=== PATIENT | female | born 1960 | race Caucasian/White ===

== ENCOUNTER 2021-07-10 11:24 | Inpatient (IN) ==
[2021-07-10] MEDS ORDERED: 0.9 % Sodium Chloride 500 ML IVC ONE ×2 (11:44→13:26)
[2021-07-10 11:56] LABS: Hemoglobin 8.5 g/dL (11.5-15.4)
[2021-07-10 11:58] LABS: Hematocrit 30.5 % (35.3-44.9); Immature Platelets 9.2 % (1.1-6.1); Mean Corpuscular HGB Conc 27.9 g/dL (31.6-35.5); Mean Corpuscular Hemoglobin 27.9 pg (28.0-33.3); Monocytes # 0.4 K/mcL (0.0-1.3); Neutrophils # 3.4 K/mcL (1.6-8.9); Nucleated Red Blood Cells 1.1 /100 WBC (0); Red Blood Count 3.05 M/mcL (3.82-4.97); Red Cell Distribution Width 17.2 % (11.5-14.5); White Blood Count 4.5 K/mcL (4.3-11.1)
[2021-07-10 12:06] LABS: Prothrombin Time 10.7 Seconds (9.4-12.1)
[2021-07-10 12:07] LABS: Platelet Count 92 K/mcL (140-400)
[2021-07-10 12:08] LABS: Activated Partial Thrombo Time 30.5 Seconds (26.0-36.0)
[2021-07-10 12:19] LABS: Lymphocytes # 0.7 K/mcL (0.6-4.6)
[2021-07-10 12:20] LABS: Anisocytosis 1+ (Not Present); Hypochromasia Present (Not Present); Platelet Estimate Decreased (Normal); Poikilocytosis 1+ (Not Present)
[2021-07-10 12:36] LABS: Troponin I 0.04 ng/mL (< 0.04)
[2021-07-10 12:37] LABS: Alanine Aminotransferase 6 Units/L (7-52); Albumin 4.2 g/dL (3.5-5.7); Albumin/Globulin Ratio 1.8 (1.1-2.2); Alkaline Phosphatase 71 Units/L (34-104); Aspartate Amino Transferase 7 Units/L (13-39); BUN/Creatinine Ratio 11 (6-26); Bilirubin,Indirect 0.3 mg/dL (0.0-1.0); Bilirubin,Total 0.3 mg/dL (0.3-1.0); Blood Urea Nitrogen 116 mg/dL (8-23); Calcium 9.5 mg/dL (8.6-10.3); Carbon Dioxide 18 mEq/L (23-29); Chloride 115 mEq/L (98-107); Ethanol < 10 mg/dL (Less than 10); Globulin 2.3 g/dL (2.4-3.5); Glucose 144 mg/dL (70-105); Osmolality,Calculated 335 (280-300); Potassium 6.4 mEq/L (3.5-5.1); Sodium 143 mEq/L (136-145); Total Protein 6.5 g/dL (6.4-8.9); eGFR For African Americans 4 (> 60); eGFR For Non-African Americans 4 (> 60)
[2021-07-10] MEDS ORDERED: Calcium Gluconate 1,000 MG/10 ML VIAL IVP STA (13:42)
[2021-07-10] MEDS ORDERED: *HR* Dextrose 50 % in Water (Syg) 50 ML SYRINGE IVP ONE (13:43)
[2021-07-10] MEDS ORDERED: Insulin Human Regular 10 UNIT in 0.9 % Sodium Chloride 10 ML IV ONE (13:43)
[2021-07-10] MEDS ORDERED: Calcium Gluconate 1gm/50mL 1 GM/50 ML BAG IVPB ONE (14:30)
[2021-07-10] MEDS ORDERED: *HR* Heparin 5,000 UNIT/ML VIAL ONE ×2 (15:20→15:22)
[2021-07-10] MEDS ORDERED: 0.9 % Sodium Chloride 1,000 ML PRIME ONE ×2 (15:48)
[2021-07-10] MEDS ORDERED: *HR* Alteplase (Cathflo) 2 MG VIAL IVP PRN (15:48)
[2021-07-10] MEDS ORDERED: 0.9 % Sodium Chloride 1,000 ML PRIME SCH (16:00)
[2021-07-10] MEDS ORDERED: Naloxone 0.4 MG/ML INJ IVP PRN (16:20)
[2021-07-10] MEDS ORDERED: Ondansetron 4 MG/2 ML VIAL IVP PRN (16:20)
[2021-07-10 16:26] LABS: Amphetamine Screen,Urine Negative ng/mL (Cutoff=1000); Barbiturate Screen,Urine Negative ng/mL (Cutoff=200); Benzodiazepines Screen,Urine Negative ng/mL (Cutoff=200); Cannabinoid Screen,Urine Negative ng/mL (Cutoff = 50); Cocaine Screen,Urine Negative ng/mL (Cutoff= 300); Opiate Screen,Urine Negative ng/mL (Cutoff=300); Phencyclidine Screen,Urine Negative ng/mL (Cutoff=25)
[2021-07-10 16:44] LABS: Bilirubin,Urine Negative (Negative); Blood,Urine Large (Negative); Clarity,Urine Turbid (Clear); Color,Urine Dark-Red (Yellow); Glucose,Urine (UA) Normal (Normal); Ketones,Urine Negative (Negative); Leukocyte Esterase,Urine Small (Negative); Nitrite,Urine Negative (Negative); Protein,Urine >=600 mg/dL (Neg-Trace); Specific Gravity,Urine 1.021 (1.010-1.025); Urobilinogen,Urine Normal (Normal)
[2021-07-10 16:54] LABS: Influenza A PCR Negative (Negative); Influenza B PCR Negative (Negative); Resp. Syncytial Virus PCR Negative (Negative)
[2021-07-10 16:59] LABS: SARS-CoV-2 by PCR (In House) Negative (Negative)
[2021-07-10] MEDS ORDERED: *HR* Dextrose 50 % in Water (Syg) 50 ML SYRINGE ONE (20:35)
[2021-07-10] MEDS ORDERED: *HR* Dextrose 50 % in Water (Syg) 50 ML SYRINGE IVP PRN (21:05)
[2021-07-10] MEDS ORDERED: Dextrose Gel 15 GM/37.5 ML TUBE PO PRN ×2 (21:05)
[2021-07-10] MEDS ORDERED: D5% in Water 1,000 ML IVC PRN (21:05)
[2021-07-10 21:55] LABS: Calcium 9.2 mg/dL (8.6-10.3); Potassium 5.6 mEq/L (3.5-5.1)
[2021-07-10] MEDS: SODIUM ZIRCONIUM CYCLOSILICATE 5 GM POWD.PACK PO SCH (22:14)
[2021-07-10] MEDS ORDERED: Norepinephrine 4 MG/254 ML IV.SOLN IVC SCH (22:15)
[2021-07-10] MEDS: Norepinephrine 4 MG/254 ML IV.SOLN IVC SCH (22:37)
[2021-07-10] MEDS: PrismaSATE BGK 4/2.5 5,000 ML CRRT SCH ×2 (22:38→22:39)
[2021-07-11] MEDS: PrismaSATE BGK 4/2.5 5,000 ML CRRT SCH ×10 (03:00→23:43)
[2021-07-11 03:27] LABS: Basophils % 0.2 %
[2021-07-11 03:29] LABS: VBG Ionized Calcium 1.16 mmol/L (1.15-1.35)
[2021-07-11 03:29] LABS: Eosinophils # 0.1 K/mcL (0.0-0.6); Eosinophils % 2.4 %; Hematocrit 25.6 % (35.3-44.9); Hemoglobin 7.4 g/dL (11.5-15.4); Immature Granulocytes % 1.2 % (0-4); Immature Platelets 6.4 % (1.1-6.1); Lymphocytes # 0.6 K/mcL (0.6-4.6); Lymphocytes % 13.4 %; Mean Corpuscular HGB Conc 28.9 g/dL (31.6-35.5); Mean Corpuscular Hemoglobin 27.6 pg (28.0-33.3); Mean Corpuscular Volume 95.5 fL (83.0-100.0); Mean Platelet Volume 12.1 fL (9.4-12.4); Monocytes # 0.3 K/mcL (0.0-1.3); Monocytes % 8.1 %; Neutrophils # 3.1 K/mcL (1.6-8.9); Platelet Count 91 K/mcL (140-400); Red Blood Count 2.68 M/mcL (3.82-4.97); Red Cell Distribution Width 17.1 % (11.5-14.5); Segmented Neutrophils % 74.7 %; White Blood Count 4.2 K/mcL (4.3-11.1)
[2021-07-11 03:45] LABS: Magnesium 2.6 mg/dL (1.6-2.6); Phosphorous 5.3 mg/dL (2.7-4.5)
[2021-07-11 03:46] LABS: Calcium 8.6 mg/dL (8.6-10.3); Potassium 5.3 mEq/L (3.5-5.1)
[2021-07-11 03:56] LABS: Platelet Estimate Decreased (Normal)
[2021-07-11 03:57] LABS: Anisocytosis 1+ (Not Present)
[2021-07-11] MEDS: SODIUM ZIRCONIUM CYCLOSILICATE 5 GM POWD.PACK PO SCH (07:44)
[2021-07-11] MEDS: Pantoprazole 40 MG VIAL IVP SCH (08:15)
[2021-07-11] MEDS: cefTRIAXone 1,000 MG in Water for inj. (sterile) 10 ML IVP SCH (09:37)
[2021-07-11 13:48] LABS: Complement C3 87 mg/dL (87-200)
[2021-07-11 16:16] LABS: Sodium, Urine 49.2 mEq/L
[2021-07-11 16:34] LABS: Protein/Creatinine Ratio,Urine 2.67 mg/mg (0.00-0.20)
[2021-07-11 18:32] LABS: Eosinophils # 0.1 K/mcL (0.0-0.6); Eosinophils % 1.1 %; Hematocrit 23.5 % (35.3-44.9); Immature Granulocytes % 0.9 % (0-4); Immature Platelets 6.5 % (1.1-6.1); Lymphocytes # 0.6 K/mcL (0.6-4.6); Lymphocytes % 9.7 %; Mean Corpuscular HGB Conc 29.8 g/dL (31.6-35.5); Mean Corpuscular Hemoglobin 27.7 pg (28.0-33.3); Mean Corpuscular Volume 92.9 fL (83.0-100.0); Mean Platelet Volume 12.5 fL (9.4-12.4); Monocytes # 0.4 K/mcL (0.0-1.3); Monocytes % 6.9 %; Neutrophils # 4.6 K/mcL (1.6-8.9); Nucleated Red Blood Cells 0.4 /100 WBC (0); Platelet Count 64 K/mcL (140-400); Red Blood Count 2.53 M/mcL (3.82-4.97); Red Cell Distribution Width 17.2 % (11.5-14.5); Segmented Neutrophils % 81.4 %; White Blood Count 5.7 K/mcL (4.3-11.1)
[2021-07-11] MEDS ORDERED: Ipratropium/Albuterol Neb 3 ML IH PRN (20:36)
[2021-07-11] MEDS: Norepinephrine 4 MG/254 ML IV.SOLN IVC SCH (20:53)
[2021-07-11] MEDS: *HR* LORazepam 2 MG/ML VIAL IVP PRN (20:54)
[2021-07-11] MEDS: predniSONE 20 MG TABLET PO SCH (20:54)
[2021-07-11] MEDS ORDERED: Tacrolimus [Prograf] 1 MG Capsule PO SCH (21:00)
[2021-07-11 21:02] LABS: Hematocrit 24.3 % (35.3-44.9); Hemoglobin 7.2 g/dL (11.5-15.4)
[2021-07-11 21:06] LABS: VBG Ionized Calcium 1.09 mmol/L (1.15-1.35)
[2021-07-11 21:21] LABS: Calcium 8.1 mg/dL (8.6-10.3); Magnesium 2.4 mg/dL (1.6-2.6); Phosphorous 2.8 mg/dL (2.7-4.5); Potassium 4.7 mEq/L (3.5-5.1)
[2021-07-11] MEDS: Morphine Sulfate 2 MG/ML SYRINGE IVP PRN (21:52)
[2021-07-11] MEDS: *HR* Heparin 5,000 UNIT/ML VIAL IVP PRN (23:10)
[2021-07-12 04:17] LABS: Hemoglobin 6.3 g/dL (11.5-15.4); Mean Corpuscular Hemoglobin 28.5 pg (28.0-33.3); Red Blood Count 2.21 M/mcL (3.82-4.97)
[2021-07-12 04:19] LABS: Eosinophils % 0.2 %; Hematocrit 20.7 % (35.3-44.9); Immature Granulocytes % 0.8 % (0-4); Immature Platelets 6.5 % (1.1-6.1); Lymphocytes # 0.2 K/mcL (0.6-4.6); Lymphocytes % 4.9 %; Mean Corpuscular HGB Conc 30.4 g/dL (31.6-35.5); Mean Corpuscular Volume 93.7 fL (83.0-100.0); Mean Platelet Volume 12.2 fL (9.4-12.4); Monocytes # 0.2 K/mcL (0.0-1.3); Monocytes % 4.2 %; Neutrophils # 4.2 K/mcL (1.6-8.9); Nucleated Red Blood Cells 0.4 /100 WBC (0); Red Cell Distribution Width 16.8 % (11.5-14.5); Segmented Neutrophils % 89.9 %; White Blood Count 4.7 K/mcL (4.3-11.1)
[2021-07-12 04:23] LABS: Calcium 7.6 mg/dL (8.6-10.3); Magnesium 2.3 mg/dL (1.6-2.6); Phosphorous 2.7 mg/dL (2.7-4.5); Potassium 4.6 mEq/L (3.5-5.1)
[2021-07-12 04:25] LABS: Platelet Count 55 K/mcL (140-400)
[2021-07-12 04:42] LABS: VBG Ionized Calcium 1.09 mmol/L (1.15-1.35)
[2021-07-12] MEDS: PrismaSATE BGK 4/2.5 5,000 ML CRRT SCH ×8 (04:57→20:24)
[2021-07-12] MEDS: SODIUM ZIRCONIUM CYCLOSILICATE 5 GM POWD.PACK PO SCH (08:38)
[2021-07-12] MEDS ORDERED: Tacrolimus [Prograf] 0.5 MG Capsule PO SCH (09:00)
[2021-07-12] MEDS ORDERED: 0.9 % Sodium Chloride 250 ML ONE (09:49)
[2021-07-12] MEDS: Folic Acid 1 MG TABLET PO SCH (09:53)
[2021-07-12] MEDS: Tacrolimus [Prograf] 1 MG Capsule PO SCH ×2 (09:53→20:58)
[2021-07-12] MEDS: Tacrolimus [Prograf] 0.5 MG Capsule PO SCH ×2 (09:53→20:59)
[2021-07-12] MEDS: Pantoprazole 40 MG VIAL IVP SCH (09:54)
[2021-07-12] MEDS: cefTRIAXone 1,000 MG in Water for inj. (sterile) 10 ML IVP SCH (09:54)
[2021-07-12] MEDS: predniSONE 20 MG TABLET PO SCH (09:54)
[2021-07-12] MEDS: *HR* LORazepam 2 MG/ML VIAL IVP PRN ×2 (09:55→23:55)
[2021-07-12] MEDS: Morphine Sulfate 2 MG/ML SYRINGE IVP PRN (20:57)
[2021-07-12] MEDS: Norepinephrine 4 MG/254 ML IV.SOLN IVC SCH (23:35)
[2021-07-13] MEDS: PrismaSATE BGK 4/2.5 5,000 ML CRRT SCH ×4 (01:20→06:55)
[2021-07-13 03:31] LABS: VBG Ionized Calcium 1.12 mmol/L (1.15-1.35)
[2021-07-13 03:32] LABS: Eosinophils % 0.5 %; Hematocrit 26.8 % (35.3-44.9); Lymphocytes % 5.7 %; Red Cell Distribution Width 16.3 % (11.5-14.5); Segmented Neutrophils % 87.3 %
[2021-07-13 03:34] LABS: Hemoglobin 8.2 g/dL (11.5-15.4); Immature Granulocytes % 1.3 % (0-4); Immature Platelets 7.9 % (1.1-6.1); Lymphocytes # 0.3 K/mcL (0.6-4.6); Mean Corpuscular HGB Conc 30.6 g/dL (31.6-35.5); Mean Corpuscular Hemoglobin 28.5 pg (28.0-33.3); Mean Corpuscular Volume 93.1 fL (83.0-100.0); Mean Platelet Volume 10.7 fL (9.4-12.4); Monocytes # 0.3 K/mcL (0.0-1.3); Monocytes % 5.2 %; Neutrophils # 5.2 K/mcL (1.6-8.9); Platelet Count 49 K/mcL (140-400); Red Blood Count 2.88 M/mcL (3.82-4.97)
[2021-07-13 03:46] LABS: Calcium 7.6 mg/dL (8.6-10.3); Magnesium 2.2 mg/dL (1.6-2.6); Phosphorous 1.5 mg/dL (2.7-4.5); Potassium 4.4 mEq/L (3.5-5.1)
[2021-07-13] MEDS ORDERED: *HR* Heparin 5,000 UNIT/ML VIAL ONE ×2 (06:17→13:00)
[2021-07-13] MEDS: *HR* Heparin 5,000 UNIT/ML VIAL IVP PRN ×3 (06:44→14:09)
[2021-07-13] MEDS ORDERED: Acetaminophen 325 MG TABLET PO PRN (07:18)
[2021-07-13] MEDS: Folic Acid 1 MG TABLET PO SCH (07:32)
[2021-07-13] MEDS: cefTRIAXone 1,000 MG in Water for inj. (sterile) 10 ML IVP SCH (07:32)
[2021-07-13] MEDS: predniSONE 20 MG TABLET PO SCH (07:32)
[2021-07-13] MEDS: Pantoprazole 40 MG VIAL IVP SCH (07:33)
[2021-07-13] MEDS: SODIUM ZIRCONIUM CYCLOSILICATE 5 GM POWD.PACK PO SCH (08:00)
[2021-07-13] MEDS: Tacrolimus [Prograf] 1 MG Capsule PO SCH (10:48)
[2021-07-13] MEDS: Tacrolimus [Prograf] 0.5 MG Capsule PO SCH (10:48)
[2021-07-13] MEDS ORDERED: *HR* Metoprolol 5 MG/5 ML VIAL IVP ONE ×4 (11:30→20:15)
[2021-07-13] MEDS ORDERED: Naloxone 0.4 MG/ML INJ IVP PRN (17:40)
[2021-07-13] MEDS ORDERED: *HR* Alteplase (Cathflo) 2 MG VIAL IVP PRN (17:40)
[2021-07-13] MEDS ORDERED: *HR* Heparin 5,000 UNIT/ML VIAL IVP PRN (17:40)
[2021-07-13] MEDS ORDERED: D5% in Water 1,000 ML IVC PRN (17:40)
[2021-07-13] MEDS ORDERED: Dextrose Gel 15 GM/37.5 ML TUBE PO PRN ×2 (17:40)
[2021-07-13] MEDS ORDERED: *HR* Dextrose 50 % in Water (Syg) 50 ML SYRINGE IVP PRN (17:40)
[2021-07-13] MEDS ORDERED: Morphine Sulfate 2 MG/ML SYRINGE IVP PRN (17:40)
[2021-07-13] MEDS ORDERED: Sulfamethoxazole/Trimeth SS 1 TAB PO SCH (20:38)
[2021-07-13] MEDS: *HR* LORazepam 2 MG/ML VIAL IVP PRN (21:07)
[2021-07-13] MEDS: Patient Taking Own Medication 1 EACH PO SCH ×2 (21:08)
[2021-07-14 06:08] LABS: VBG Ionized Calcium 1.15 mmol/L (1.15-1.35)
[2021-07-14 06:25] LABS: Eosinophils # 0.1 K/mcL (0.0-0.6); Eosinophils % 1.3 %; Hematocrit 26.5 % (35.3-44.9); Hemoglobin 7.9 g/dL (11.5-15.4); Immature Granulocytes % 1.3 % (0-4); Immature Platelets 9.8 % (1.1-6.1); Lymphocytes # 0.3 K/mcL (0.6-4.6); Lymphocytes % 6.3 %; Mean Corpuscular HGB Conc 29.8 g/dL (31.6-35.5); Mean Corpuscular Hemoglobin 28.8 pg (28.0-33.3); Mean Corpuscular Volume 96.7 fL (83.0-100.0); Mean Platelet Volume 12.9 fL (9.4-12.4); Monocytes # 0.3 K/mcL (0.0-1.3); Monocytes % 6.3 %; Neutrophils # 4.1 K/mcL (1.6-8.9); Platelet Count 42 K/mcL (140-400); Red Blood Count 2.74 M/mcL (3.82-4.97); Red Cell Distribution Width 16.4 % (11.5-14.5); Segmented Neutrophils % 84.8 %; White Blood Count 4.8 K/mcL (4.3-11.1)
[2021-07-14 06:50] LABS: Calcium 7.7 mg/dL (8.6-10.3); Magnesium 2.3 mg/dL (1.6-2.6); Phosphorous 2.8 mg/dL (2.7-4.5); Potassium 4.3 mEq/L (3.5-5.1)
[2021-07-14] MEDS: cefTRIAXone 1,000 MG in Water for inj. (sterile) 10 ML IVP SCH (10:01)
[2021-07-14 10:10] LABS: ANA IgG by ELISA NONE DETECTED (None Detected)
[2021-07-14] MEDS: SODIUM ZIRCONIUM CYCLOSILICATE 5 GM POWD.PACK PO SCH (10:15)
[2021-07-14] MEDS: predniSONE 20 MG TABLET PO SCH (10:15)
[2021-07-14] MEDS: Folic Acid 1 MG TABLET PO SCH (10:15)
[2021-07-14] MEDS: Pantoprazole 40 MG VIAL IVP SCH (10:15)
[2021-07-14] MEDS: Patient Taking Own Medication 1 EACH PO SCH ×4 (10:20→19:52)
[2021-07-14] MEDS ORDERED: Saline Nasal Spray 44 ML BOTTLE NS PRN (17:09)
[2021-07-14] MEDS: Mirtazapine 15 MG TABLET PO SCH (19:41)
[2021-07-14] MEDS: Tobramycin for INHALATION 300 MG/5 ML AMPUL IH SCH (20:39)
[2021-07-14] MEDS ORDERED: Gabapentin 100 MG CAPSULE PO SCH (21:00)
[2021-07-14] MEDS ORDERED: Gabapentin 300 MG CAPSULE PO SCH (21:00)
[2021-07-15 02:51] LABS: Hematocrit 26.2 % (35.3-44.9); Hemoglobin 7.6 g/dL (11.5-15.4); Mean Corpuscular Volume 96.7 fL (83.0-100.0); Mean Platelet Volume 12.1 fL (9.4-12.4); Red Blood Count 2.71 M/mcL (3.82-4.97); Red Cell Distribution Width 16.2 % (11.5-14.5); White Blood Count 3.6 K/mcL (4.3-11.1)
[2021-07-15 02:52] LABS: Platelet Count 42 K/mcL (140-400)
[2021-07-15 03:14] LABS: Calcium 7.7 mg/dL (8.6-10.3); Magnesium 2.4 mg/dL (1.6-2.6); Phosphorous 3.8 mg/dL (2.7-4.5); Potassium 4.5 mEq/L (3.5-5.1)
[2021-07-15] MEDS: Tobramycin for INHALATION 300 MG/5 ML AMPUL IH SCH ×2 (07:37→22:01)
[2021-07-15] MEDS: Folic Acid 1 MG TABLET PO SCH (09:03)
[2021-07-15] MEDS: predniSONE 20 MG TABLET PO SCH (09:04)
[2021-07-15] MEDS: Sulfamethoxazole/Trimeth SS 1 TAB PO SCH (09:04)
[2021-07-15] MEDS: SODIUM ZIRCONIUM CYCLOSILICATE 5 GM POWD.PACK PO SCH (09:04)
[2021-07-15] MEDS: Pantoprazole 40 MG VIAL IVP SCH (09:05)
[2021-07-15] MEDS: cefTRIAXone 1,000 MG in Water for inj. (sterile) 10 ML IVP SCH (09:05)
[2021-07-15] MEDS: Patient Taking Own Medication 1 EACH PO SCH ×2 (09:07)
[2021-07-15 09:46] LABS: Hepatitis B Surface Antibody < 3.10 mIU/mL
[2021-07-15 09:57] LABS: Hepatitis B Surface Antigen Nonreactive (Nonreactive)
[2021-07-15 10:41] LABS: GBM IgG Multiplex Bead Assay 0 AU/mL (0-19); Glomerular Basement Memb IgG NEGATIVE (Negative)
[2021-07-15] MEDS: Tacrolimus [Prograf] 1 MG Capsule SL SCH (17:05)
[2021-07-15] MEDS: Tacrolimus [Prograf] 0.5 MG Capsule SL SCH (17:05)
[2021-07-15] MEDS ORDERED: Tacrolimus [Prograf] 0.5 MG Capsule PO SCH (18:00)
[2021-07-15] MEDS ORDERED: Tacrolimus [Prograf] 1 MG Capsule PO SCH (18:00)
[2021-07-15] MEDS: Mirtazapine 15 MG TABLET PO SCH (19:48)
[2021-07-16 04:03] LABS: Hematocrit 27.3 % (35.3-44.9); Immature Platelets 10.8 % (1.1-6.1); Mean Corpuscular HGB Conc 29.3 g/dL (31.6-35.5); Mean Corpuscular Hemoglobin 29.3 pg (28.0-33.3); Mean Platelet Volume 12.7 fL (9.4-12.4); Red Blood Count 2.73 M/mcL (3.82-4.97); Red Cell Distribution Width 16.2 % (11.5-14.5); White Blood Count 5.3 K/mcL (4.3-11.1)
[2021-07-16 04:21] LABS: Calcium 7.8 mg/dL (8.6-10.3); Magnesium 2.7 mg/dL (1.6-2.6); Phosphorous 5.1 mg/dL (2.7-4.5); Potassium 4.2 mEq/L (3.5-5.1)
[2021-07-16 04:28] LABS: Iron 50 mcg/dL (50-170)
[2021-07-16 04:39] LABS: Ferritin 94 ng/mL (10-120)
[2021-07-16 04:44] LABS: Folate 20.9 ng/mL (3.0-16.0)
[2021-07-16] MEDS: Tacrolimus [Prograf] 1 MG Capsule SL SCH ×2 (05:21→18:01)
[2021-07-16] MEDS: Tacrolimus [Prograf] 0.5 MG Capsule SL SCH (05:21)
[2021-07-16] MEDS: Tobramycin for INHALATION 300 MG/5 ML AMPUL IH SCH ×2 (07:55→23:39)
[2021-07-16] MEDS: predniSONE 5 MG TABLET PO SCH (10:41)
[2021-07-16] MEDS: Pantoprazole 40 MG VIAL IVP SCH (10:42)
[2021-07-16] MEDS: Folic Acid 1 MG TABLET PO SCH (10:42)
[2021-07-16] MEDS: SODIUM ZIRCONIUM CYCLOSILICATE 5 GM POWD.PACK PO SCH (10:42)
[2021-07-16 13:17] LABS: Immunoglobulin G 561 mg/dL (768-1632)
[2021-07-16 13:18] LABS: Immunoglobulin A 109 mg/dL (68-408); Immunoglobulin M 53 mg/dL (35-263)
[2021-07-16 16:06] LABS: Alpha 2 Globulin (PEP) 0.52 g/dL (0.48-1.05); Beta Globulin (PEP) 0.55 g/dL (0.48-1.10)
[2021-07-16] MEDS ORDERED: Albumin 25% 25gram/100mL 25 GM/100 ML IV.SOLN IVPB ONE ×2 (16:22→23:47)
[2021-07-16 18:37] LABS: ANCA IFA Titer <1:20 (<1:20)
[2021-07-16] MEDS: Mirtazapine 15 MG TABLET PO SCH (22:33)
[2021-07-17 04:19] LABS: Calcium 7.9 mg/dL (8.6-10.3); Magnesium 2.7 mg/dL (1.6-2.6); Potassium 4.1 mEq/L (3.5-5.1)
[2021-07-17 05:05] LABS: White Blood Count 2.2 K/mcL (4.3-11.1)
[2021-07-17 05:06] LABS: Hemoglobin 6.7 g/dL (11.5-15.4); Immature Platelets 10.9 % (1.1-6.1); Mean Corpuscular HGB Conc 29.1 g/dL (31.6-35.5); Mean Corpuscular Hemoglobin 29.3 pg (28.0-33.3); Mean Corpuscular Volume 100.4 fL (83.0-100.0); Mean Platelet Volume 13.3 fL (9.4-12.4); Red Blood Count 2.29 M/mcL (3.82-4.97); Red Cell Distribution Width 15.9 % (11.5-14.5)
[2021-07-17] MEDS: Tacrolimus [Prograf] 1 MG Capsule SL SCH ×2 (06:19→20:49)
[2021-07-17] MEDS: Ondansetron 4 MG/2 ML VIAL IVP PRN (06:22)
[2021-07-17] MEDS ORDERED: *HR* Heparin 10,000 UNIT/10 ML VIAL IV PRN (07:33)
[2021-07-17] MEDS ORDERED: Albumin 25% 25gram/100mL 25 GM/100 ML IV.SOLN IVPB PRN (07:33)
[2021-07-17] MEDS ORDERED: 0.9 % Sodium Chloride 250 ML IVC PRN (07:33)
[2021-07-17] MEDS ORDERED: 0.9 % Sodium Chloride 1,000 ML PRIME SCH (07:45)
[2021-07-17 08:56] LABS: Hematocrit 24.2 % (35.3-44.9); Hemoglobin 6.8 g/dL (11.5-15.4)
[2021-07-17] MEDS: Folic Acid 1 MG TABLET PO SCH (09:02)
[2021-07-17] MEDS: Pantoprazole 40 MG VIAL IVP SCH (09:02)
[2021-07-17] MEDS: Sulfamethoxazole/Trimeth SS 1 TAB PO SCH (09:02)
[2021-07-17] MEDS: SODIUM ZIRCONIUM CYCLOSILICATE 5 GM POWD.PACK PO SCH (09:02)
[2021-07-17] MEDS: predniSONE 5 MG TABLET PO SCH (09:03)
[2021-07-17 09:50] LABS: ANCA IFA Pattern NONE DETECTED (None Detected); IFE Reflexed IFE Done; Serine Protease-3 Antibody 0 AU/mL (0-19)
[2021-07-17] MEDS: Tobramycin for INHALATION 300 MG/5 ML AMPUL IH SCH ×2 (10:11→20:57)
[2021-07-17 13:45] LABS: Troponin I 0.04 ng/mL (< 0.04)
[2021-07-17 14:21] LABS: Hematocrit 27.2 % (35.3-44.9); Hemoglobin 8.1 g/dL (11.5-15.4); Immature Reticulocyte % 5.7 % (11.0-38.0); Retculocyte # 0.02 M/mcL (0.05-0.10); Reticulocyte % 0.8 % (1.6-2.8)
[2021-07-17] MEDS ORDERED: 0.9 % Sodium Chloride 250 ML IVC ONE ×4 (14:43→15:40)
[2021-07-17] MEDS ORDERED: Amiodarone Premix 150 MG/100 ML BAG IVPB ONE (15:31)
[2021-07-17] MEDS ORDERED: Amiodarone Premix 360 MG/200 ML BAG IVC ONE (15:31)
[2021-07-17 15:52] LABS: Complement C3 88 mg/dL (87-200)
[2021-07-17] MEDS: Mirtazapine 15 MG TABLET PO SCH (20:49)
[2021-07-17] MEDS ORDERED: Amiodarone Premix 360 MG/200 ML BAG IVC SCH (21:31)
[2021-07-18 03:08] LABS: Immature Granulocytes % 0.9 % (0-4); Mean Corpuscular Volume 96.3 fL (83.0-100.0)
[2021-07-18 03:09] LABS: Magnesium 2.1 mg/dL (1.6-2.6); Phosphorous 3.6 mg/dL (2.7-4.5)
[2021-07-18 03:10] LABS: Calcium 7.7 mg/dL (8.6-10.3); Eosinophils % 1.4 %; Hematocrit 25.9 % (35.3-44.9); Hemoglobin 7.8 g/dL (11.5-15.4); Immature Platelets 11.4 % (1.1-6.1); Lymphocytes # 0.3 K/mcL (0.6-4.6); Lymphocytes % 15.3 %; Mean Corpuscular HGB Conc 30.1 g/dL (31.6-35.5); Mean Platelet Volume 12.3 fL (9.4-12.4); Monocytes # 0.3 K/mcL (0.0-1.3); Neutrophils # 1.5 K/mcL (1.6-8.9); Potassium 3.6 mEq/L (3.5-5.1); Red Blood Count 2.69 M/mcL (3.82-4.97); Red Cell Distribution Width 15.4 % (11.5-14.5); Segmented Neutrophils % 69.4 %; White Blood Count 2.2 K/mcL (4.3-11.1)
[2021-07-18 03:11] LABS: Platelet Count 48 K/mcL (140-400)
[2021-07-18] MEDS: Tacrolimus [Prograf] 1 MG Capsule SL SCH ×2 (05:38→18:39)
[2021-07-18] MEDS: *HR* LORazepam 2 MG/ML VIAL IVP PRN (05:58)
[2021-07-18] MEDS: Ondansetron 4 MG/2 ML VIAL IVP PRN (05:58)
[2021-07-18] MEDS: Tobramycin for INHALATION 300 MG/5 ML AMPUL IH SCH ×2 (07:45→21:50)
[2021-07-18] MEDS: Pantoprazole 40 MG VIAL IVP SCH (10:42)
[2021-07-18] MEDS: predniSONE 5 MG TABLET PO SCH (10:43)
[2021-07-18] MEDS: SODIUM ZIRCONIUM CYCLOSILICATE 5 GM POWD.PACK PO SCH (10:43)
[2021-07-18] MEDS: Folic Acid 1 MG TABLET PO SCH (10:43)
[2021-07-18] MEDS: Mirtazapine 15 MG TABLET PO SCH (20:43)
[2021-07-19 01:47] LABS: Basophils % 0.4 %; Eosinophils % 0.8 %; Hematocrit 26.4 % (35.3-44.9); Hemoglobin 8.2 g/dL (11.5-15.4); Immature Granulocytes % 1.3 % (0-4); Immature Platelets 13.3 % (1.1-6.1); Lymphocytes # 0.4 K/mcL (0.6-4.6); Lymphocytes % 17.3 %; Mean Corpuscular HGB Conc 31.1 g/dL (31.6-35.5); Mean Corpuscular Hemoglobin 29.6 pg (28.0-33.3); Mean Corpuscular Volume 95.3 fL (83.0-100.0); Mean Platelet Volume 12.7 fL (9.4-12.4); Monocytes # 0.4 K/mcL (0.0-1.3); Neutrophils # 1.5 K/mcL (1.6-8.9); Red Blood Count 2.77 M/mcL (3.82-4.97); Segmented Neutrophils % 64.2 %; White Blood Count 2.4 K/mcL (4.3-11.1)
[2021-07-19 01:50] LABS: Platelet Count 49 K/mcL (140-400)
[2021-07-19 02:06] LABS: Potassium 3.3 mEq/L (3.5-5.1)
[2021-07-19] MEDS: Tacrolimus [Prograf] 1 MG Capsule SL SCH ×2 (05:41→17:41)
[2021-07-19] MEDS: Tobramycin for INHALATION 300 MG/5 ML AMPUL IH SCH ×2 (07:25→20:32)
[2021-07-19] MEDS: SODIUM ZIRCONIUM CYCLOSILICATE 5 GM POWD.PACK PO SCH (09:06)
[2021-07-19] MEDS: Folic Acid 1 MG TABLET PO SCH (09:11)
[2021-07-19] MEDS: predniSONE 5 MG TABLET PO SCH (09:11)
[2021-07-19] MEDS: Pantoprazole 40 MG VIAL IVP SCH (09:11)
[2021-07-19] MEDS: Mirtazapine 15 MG TABLET PO SCH (21:11)
[2021-07-20 02:20] LABS: Basophils % 0.3 %; Eosinophils % 1.3 %; Hematocrit 27.3 % (35.3-44.9); Hemoglobin 8.2 g/dL (11.5-15.4); Immature Platelets 10.7 % (1.1-6.1); Lymphocytes # 0.5 K/mcL (0.6-4.6); Lymphocytes % 17.4 %; Mean Corpuscular Hemoglobin 28.6 pg (28.0-33.3); Mean Corpuscular Volume 95.1 fL (83.0-100.0); Mean Platelet Volume 12.7 fL (9.4-12.4); Monocytes # 0.4 K/mcL (0.0-1.3); Monocytes % 11.7 %; Red Blood Count 2.87 M/mcL (3.82-4.97); Red Cell Distribution Width 14.9 % (11.5-14.5); Segmented Neutrophils % 68.3 %
[2021-07-20 02:21] LABS: Neutrophils # 2.1 K/mcL (1.6-8.9); Platelet Count 72 K/mcL (140-400)
[2021-07-20 02:38] LABS: Calcium 8.3 mg/dL (8.6-10.3); Potassium 3.2 mEq/L (3.5-5.1)
[2021-07-20] MEDS: Acetaminophen 325 MG TABLET PO PRN (03:06)
[2021-07-20] MEDS: *HR* LORazepam 2 MG/ML VIAL IVP PRN (03:29)
[2021-07-20] MEDS: Tacrolimus [Prograf] 1 MG Capsule SL SCH ×2 (05:36→18:09)
[2021-07-20] MEDS: Tobramycin for INHALATION 300 MG/5 ML AMPUL IH SCH ×2 (07:39→19:43)
[2021-07-20] MEDS: Folic Acid 1 MG TABLET PO SCH (08:33)
[2021-07-20] MEDS: Sulfamethoxazole/Trimeth SS 1 TAB PO SCH (08:33)
[2021-07-20] MEDS: Pantoprazole 40 MG VIAL IVP SCH (08:34)
[2021-07-20] MEDS: predniSONE 5 MG TABLET PO SCH (08:34)
[2021-07-20] MEDS ORDERED: 0.9 % Sodium Chloride 250 ML IVC PRN (08:45)
[2021-07-20] MEDS ORDERED: Albumin 25% 25gram/100mL 25 GM/100 ML IV.SOLN IVPB PRN (08:45)
[2021-07-20] MEDS ORDERED: *HR* Heparin 10,000 UNIT/10 ML VIAL IV PRN ×2 (08:45)
[2021-07-20] MEDS: Ondansetron 4 MG/2 ML VIAL IVP PRN (10:02)
[2021-07-20] MEDS: Mirtazapine 15 MG TABLET PO SCH (20:05)
[2021-07-21] MEDS: Tacrolimus [Prograf] 1 MG Capsule SL SCH ×2 (05:20→17:35)
[2021-07-21 06:15] LABS: Calcium 8.1 mg/dL (8.6-10.3); Magnesium 2.1 mg/dL (1.6-2.6); Phosphorous 3.5 mg/dL (2.7-4.5); Potassium 3.4 mEq/L (3.5-5.1)
[2021-07-21 08:03] LABS: Hemoglobin 8.1 g/dL (11.5-15.4)
[2021-07-21 08:05] LABS: Immature Platelets 12.9 % (1.1-6.1); Mean Corpuscular Hemoglobin 28.7 pg (28.0-33.3); Mean Corpuscular Volume 95.7 fL (83.0-100.0); Mean Platelet Volume 12.5 fL (9.4-12.4); Red Blood Count 2.82 M/mcL (3.82-4.97); White Blood Count 2.6 K/mcL (4.3-11.1)
[2021-07-21] MEDS: Tobramycin for INHALATION 300 MG/5 ML AMPUL IH SCH ×2 (08:14→19:55)
[2021-07-21] MEDS: Ondansetron 4 MG/2 ML VIAL IVP PRN ×2 (08:29→16:35)
[2021-07-21] MEDS: Folic Acid 1 MG TABLET PO SCH (08:30)
[2021-07-21] MEDS: predniSONE 5 MG TABLET PO SCH (08:30)
[2021-07-21] MEDS: Mirtazapine 15 MG TABLET PO SCH (19:55)
[2021-07-22 02:51] LABS: % Iron Saturation 23 % (15-50); Transferrin 157 mg/dL (203-362)
[2021-07-22 05:26] LABS: Hematocrit 25.8 % (35.3-44.9); Hemoglobin 7.6 g/dL (11.5-15.4); Mean Corpuscular HGB Conc 29.5 g/dL (31.6-35.5); Mean Corpuscular Hemoglobin 28.6 pg (28.0-33.3); Mean Platelet Volume 12.9 fL (9.4-12.4); Red Blood Count 2.66 M/mcL (3.82-4.97); Red Cell Distribution Width 15.1 % (11.5-14.5); White Blood Count 3.1 K/mcL (4.3-11.1)
[2021-07-22 05:27] LABS: Platelet Count 85 K/mcL (140-400)
[2021-07-22 05:34] LABS: INR 1.1; Prothrombin Time 11.8 Seconds (9.4-12.1)
[2021-07-22 05:51] LABS: Calcium 8.5 mg/dL (8.6-10.3); Potassium 3.5 mEq/L (3.5-5.1)
[2021-07-22] MEDS: Tacrolimus [Prograf] 1 MG Capsule SL SCH ×2 (06:20→18:05)
[2021-07-22] MEDS: Tobramycin for INHALATION 300 MG/5 ML AMPUL IH SCH ×2 (07:37→19:38)
[2021-07-22 07:50] LABS: CMV Quant by PCR IU <227 IU/mL; CMV Quant by PCR Log IU <2.4 log IU/mL; CMV Quant by PCR copies <390 cpy/mL
[2021-07-22] MEDS ORDERED: Albumin 25% 25gram/100mL 25 GM/100 ML IV.SOLN IVPB PRN (08:41)
[2021-07-22] MEDS ORDERED: *HR* Heparin 10,000 UNIT/10 ML VIAL IV PRN (08:41)
[2021-07-22] MEDS ORDERED: 0.9 % Sodium Chloride 250 ML IVC PRN (08:41)
[2021-07-22] MEDS ORDERED: 0.9 % Sodium Chloride 1,000 ML PRIME SCH (08:45)
[2021-07-22] MEDS ORDERED: Heparin 1,000 UNITS/500 mL 500 ML ONE (09:00)
[2021-07-22] MEDS ORDERED: Lidocaine/EPI 1:100k 1% 50 ML VIAL ONE (09:00)
[2021-07-22] MEDS ORDERED: *HR* FentaNYL (PF) 100 MCG/2 ML VIAL IVP ONE (09:06)
[2021-07-22] MEDS ORDERED: *HR* Midazolam HCl 2 MG/2 ML VIAL IVP ONE (09:06)
[2021-07-22] MEDS: ceFAZolin 1,000 MG in 0.9 % Sodium Chloride Mini Bag 100 ML IVPB SCH ×2 (09:50→10:06)
[2021-07-22] MEDS ORDERED: *HR* Heparin 5,000 UNIT/ML VIAL ONE (09:53)
[2021-07-22 10:15] LABS: CMV Quant by PCR Interp NOT DETECTED (Not Detected); CMV Quant by PCR Log copies <2.6 log cpy/mL
[2021-07-22] MEDS ORDERED: Albumin 25% 25gram/100mL 25 GM/100 ML IV.SOLN ONE (11:21)
[2021-07-22] MEDS: predniSONE 5 MG TABLET PO SCH (15:50)
[2021-07-22] MEDS: Folic Acid 1 MG TABLET PO SCH (15:50)
[2021-07-22] MEDS: Sulfamethoxazole/Trimeth SS 1 TAB PO SCH (15:50)
[2021-07-22] MEDS: Mirtazapine 15 MG TABLET PO SCH (20:11)
[2021-07-22] MEDS: Acetaminophen 325 MG TABLET PO PRN (20:11)
[2021-07-23] MEDS: Ipratropium/Albuterol Neb 3 ML IH PRN ×2 (02:49→18:32)
[2021-07-23] MEDS ORDERED: methylPREDNISolone 125 MG/2 ML VIAL IVP ONE (02:49)
[2021-07-23] MEDS: Tacrolimus [Prograf] 1 MG Capsule SL SCH ×2 (05:20→18:13)
[2021-07-23 05:49] LABS: Immature Platelets 14.1 % (1.1-6.1); Mean Corpuscular HGB Conc 29.2 g/dL (31.6-35.5); Mean Corpuscular Hemoglobin 28.5 pg (28.0-33.3); Mean Corpuscular Volume 97.6 fL (83.0-100.0); Mean Platelet Volume 12.5 fL (9.4-12.4); Red Blood Count 2.46 M/mcL (3.82-4.97); Red Cell Distribution Width 15.2 % (11.5-14.5); White Blood Count 2.9 K/mcL (4.3-11.1)
[2021-07-23 06:06] LABS: Phosphorous 2.3 mg/dL (2.7-4.5)
[2021-07-23 06:09] LABS: Calcium 8.7 mg/dL (8.6-10.3); Potassium 4.2 mEq/L (3.5-5.1)
[2021-07-23] MEDS ORDERED: MethylPREDNISolone 40 MG/ML VIAL IVP ONE (09:11)
[2021-07-23] MEDS: Folic Acid 1 MG TABLET PO SCH (10:09)
[2021-07-23] MEDS: predniSONE 20 MG TABLET PO SCH (10:09)
[2021-07-23] MEDS: Tobramycin for INHALATION 300 MG/5 ML AMPUL IH SCH ×2 (11:34→23:07)
[2021-07-23] MEDS ORDERED: *HR* LORazepam 0.5 MG TABLET PO PRN (15:57)
[2021-07-23] MEDS: Mirtazapine 15 MG TABLET PO SCH (19:30)
[2021-07-24] MEDS: Tacrolimus [Prograf] 1 MG Capsule SL SCH ×2 (05:28→18:38)
[2021-07-24 06:34] LABS: Hematocrit 25.7 % (35.3-44.9); Hemoglobin 7.2 g/dL (11.5-15.4)
[2021-07-24 06:52] LABS: Calcium 8.9 mg/dL (8.6-10.3); Magnesium 2.2 mg/dL (1.6-2.6); Phosphorous 3.6 mg/dL (2.7-4.5); Potassium 4.3 mEq/L (3.5-5.1)
[2021-07-24] MEDS: Tobramycin for INHALATION 300 MG/5 ML AMPUL IH SCH ×2 (07:39→19:55)
[2021-07-24] MEDS ORDERED: 0.9 % Sodium Chloride 250 ML IVC PRN (08:32)
[2021-07-24] MEDS ORDERED: *HR* Heparin 10,000 UNIT/10 ML VIAL IV PRN (08:32)
[2021-07-24] MEDS ORDERED: Albumin 25% 25gram/100mL 25 GM/100 ML IV.SOLN ONE (09:17)
[2021-07-24] MEDS: Sulfamethoxazole/Trimeth SS 1 TAB PO SCH (13:13)
[2021-07-24] MEDS: predniSONE 20 MG TABLET PO SCH (13:13)
[2021-07-24] MEDS: Folic Acid 1 MG TABLET PO SCH (13:14)
[2021-07-24] MEDS ORDERED: *HR* Metoprolol 5 MG/5 ML VIAL IVP ONE ×2 (13:36→13:38)
[2021-07-24 16:36] LABS: Adenovirus Not Detected (Not Detect); Bordetella Pertussis Not Detected (Not Detect); Chlamydophila pneumoniae Not Detected (Not Detect); Coronavirus 229E Not Detected (Not Detect); Coronavirus HKU1 Not Detected (Not Detect); Coronavirus NL63 Not Detected (Not Detect); Coronavirus OC43 Not Detected (Not Detect); Human Metapneumovirus Not Detected (Not Detect); Human Rhinovirus/Enterovirus Not Detected (Not Detect); Influenza A Subtype 2009 H1 Not Detected (Not Detect); Influenza B Not Detected (Not Detect); Mycoplasma pneumoniae Not Detected (Not Detect); Parainfluenza Virus 1 Not Detected (Not Detect); Parainfluenza Virus 2 Not Detected (Not Detect); Parainfluenza Virus 3 Not Detected (Not Detect); Parainfluenza Virus 4 Not Detected (Not Detect); Respiratory Syncytial Virus Not Detected (Not Detect); SARS-CoV-2 Not Detected (Not Detect)
[2021-07-24] MEDS: Mirtazapine 15 MG TABLET PO SCH (21:24)
[2021-07-24 23:10] VITALS: BP 131/61; PULSE 60; TEMP 97.9; O2SAT 97
== END 2021-07-25 00:06 | disposition critical access hospital (66) | DRG 673 ==
LOC: EMEROOARM 11:24 → 2ANU 11:24 → ICNU 19:48 → SUATTDRO 22:06 → 2ANU 07-13 20:57 → 2NNU 07-17 17:10 → 2ANU 07-18 17:51
PROVIDERS: ADMIT Pharmacist; ATTEND Internal Medicine
PROC: IRPERMA (2021-07-22 12:00)

== ENCOUNTER 2022-03-14 15:56 | Inpatient (IN) ==
[2022-03-14] MEDS ORDERED: 0.9 % Sodium Chloride 500 ML IVC ONE ×2 (16:05→18:42)
[2022-03-14] MEDS ORDERED: Calcium Gluconate 1,000 MG/10 ML VIAL IVP STA (16:11)
[2022-03-14 16:52] LABS: Basophils % 0.1 %; Eosinophils # 0.1 K/mcL (0.0-0.6); Eosinophils % 1.7 %; Hematocrit 26.4 % (35.3-44.9); Immature Granulocytes % 0.4 % (0-4); Lymphocytes # 1.5 K/mcL (0.6-4.6); Lymphocytes % 20.2 %; Mean Corpuscular HGB Conc 34.1 g/dL (31.6-35.5); Mean Corpuscular Hemoglobin 31.3 pg (28.0-33.3); Mean Corpuscular Volume 91.7 fL (83.0-100.0); Mean Platelet Volume 10.9 fL (9.4-12.4); Monocytes # 0.5 K/mcL (0.0-1.3); Monocytes % 6.7 %; Neutrophils # 5.4 K/mcL (1.6-8.9); Platelet Count 163 K/mcL (140-400); Red Blood Count 2.88 M/mcL (3.82-4.97); Red Cell Distribution Width 11.9 % (11.5-14.5); Segmented Neutrophils % 70.9 %; White Blood Count 7.6 K/mcL (4.3-11.1)
[2022-03-14 17:12] LABS: BUN/Creatinine Ratio 6 (6-26); Blood Urea Nitrogen 100 mg/dL (8-23); Carbon Dioxide 15 mEq/L (23-29); Chloride 95 mEq/L (98-107); Glucose 137 mg/dL (70-105); Osmolality,Calculated 321 (280-300); Potassium 4.4 mEq/L (3.5-5.1); Sodium 139 mEq/L (136-145); eGFR For African Americans 2 (> 60); eGFR For Non-African Americans 2 (> 60)
[2022-03-14 17:13] LABS: Troponin I < 0.03 ng/mL (< 0.04)
[2022-03-14] MEDS ORDERED: Piperacillin/Tazobactam 3.375 GM in 0.9 % Sodium Chloride Mini Bag 100 ML IVPB ONE (17:14)
[2022-03-14] MEDS ORDERED: Norepinephrine 4 MG/254 ML IV.SOLN IVC SCH (20:45)
[2022-03-14] MEDS ORDERED: Iopamidol - 370 500 ML MLS IVP ONE (21:21)
[2022-03-14 22:26] LABS: INR 1.1; Prothrombin Time 12.6 Seconds (9.4-12.1)
[2022-03-14 22:29] LABS: Activated Partial Thrombo Time 30.8 Seconds (26.0-36.0)
[2022-03-14 22:32] LABS: Albumin 3.5 g/dL (3.5-5.7); Albumin/Globulin Ratio 1.3 (1.1-2.2); Bilirubin,Direct 0.1 mg/dL (0.0-0.2); Bilirubin,Indirect 0.2 mg/dL (0.0-1.0); Bilirubin,Total 0.3 mg/dL (0.3-1.0); Globulin 2.6 g/dL (2.4-3.5); Total Protein 6.1 g/dL (6.4-8.9)
[2022-03-15] MEDS ORDERED: *HR* Heparin 5,000 UNIT/ML VIAL IVP ONE (00:23)
[2022-03-15] MEDS ORDERED: *HR* Heparin 5,000 UNIT/ML VIAL IVP PRN ×2 (00:23)
[2022-03-15] MEDS ORDERED: Naloxone 0.4 MG/ML INJ IVP PRN (01:05)
[2022-03-15] MEDS ORDERED: Melatonin 3 MG TABLET PO PRN (01:05)
[2022-03-15] MEDS: Heparin 25,000UNIT/250ML 1/2NS 25,000 UNIT/250 ML IV.SOLN IVC SCH (01:05)
[2022-03-15] MEDS ORDERED: Albumin 25% 25gram/100mL 25 GM/100 ML IV.SOLN IVPB ONE (01:30)
[2022-03-15] MEDS: Norepinephrine 4 MG/254 ML IV.SOLN IVC SCH ×3 (02:41→16:00)
[2022-03-15] MEDS ORDERED: Norepinephrine 4 MG/254 ML IV.SOLN IVC SCH (02:45)
[2022-03-15 02:48] LABS: Thyroid Stimulating Hormone 15.297 mcIU/mL (0.340-5.600)
[2022-03-15] MEDS ORDERED: Dextrose Gel 15 GM/37.5 ML TUBE PO PRN ×2 (03:18)
[2022-03-15] MEDS ORDERED: D5% in Water 1,000 ML IVC PRN (03:18)
[2022-03-15] MEDS ORDERED: *HR* Dextrose 50 % in Water (Syg) 50 ML SYRINGE IVP PRN (03:18)
[2022-03-15 03:26] LABS: Basophils % 0.2 %; Eosinophils # 0.4 K/mcL (0.0-0.6); Hematocrit 23.4 % (35.3-44.9); Hemoglobin 7.8 g/dL (11.5-15.4); Immature Granulocytes % 0.7 % (0-4); Lymphocytes # 2.5 K/mcL (0.6-4.6); Lymphocytes % 20.6 %; Mean Corpuscular HGB Conc 33.3 g/dL (31.6-35.5); Mean Corpuscular Volume 92.9 fL (83.0-100.0); Mean Platelet Volume 10.8 fL (9.4-12.4); Monocytes # 0.8 K/mcL (0.0-1.3); Monocytes % 6.8 %; Platelet Count 162 K/mcL (140-400); Red Blood Count 2.52 M/mcL (3.82-4.97); Red Cell Distribution Width 12.1 % (11.5-14.5); Segmented Neutrophils % 68.7 %
[2022-03-15 03:30] LABS: Neutrophils # 8.5 K/mcL (1.6-8.9); White Blood Count 12.3 K/mcL (4.3-11.1)
[2022-03-15 03:42] LABS: Albumin 3.8 g/dL (3.5-5.7); Albumin/Globulin Ratio 1.7 (1.1-2.2); Bilirubin,Total 0.3 mg/dL (0.3-1.0); Calcium 7.5 mg/dL (8.6-10.3); Globulin 2.2 g/dL (2.4-3.5); Magnesium 2.3 mg/dL (1.6-2.6); Phosphorous 14.4 mg/dL (2.7-4.5); Potassium 3.6 mEq/L (3.5-5.1)
[2022-03-15 04:38] LABS: Lactate Dehydrogenase 119 Units/L (140-271); Total Protein 5.8 g/dL (6.4-8.9)
[2022-03-15] MEDS: Piperacillin/Tazobactam 3.375 GM in 0.9 % Sodium Chloride Mini Bag 100 ML IVPB SCH ×2 (05:02→16:44)
[2022-03-15] MEDS ORDERED: cefTRIAXone 2,000 MG in 0.9 % Sodium Chloride 20 ML IVP SCH ×2 (06:00→09:00)
[2022-03-15] MEDS ORDERED: Insulin LISPRO 300 UNITS/3 ML VIAL SUBQ SCH (06:00)
[2022-03-15] MEDS: Levothyroxine Sodium 100 MCG VIAL IVP SCH (06:04)
[2022-03-15] MEDS: Insulin LISPRO 300 UNITS/3 ML VIAL SUBQ SCH ×4 (08:15→21:20)
[2022-03-15] MEDS: predniSONE 5 MG TABLET PO SCH (08:40)
[2022-03-15] MEDS: Sulfamethoxazole/Trimeth SS 1 TAB PO SCH (08:41)
[2022-03-15] MEDS ORDERED: Perflutren Lipid Microsphere 1.3 ML in 0.9 % Sodium Chloride 8.7 ML IVP PRN (09:24)
[2022-03-15] MEDS ORDERED: Insulin DETEMIR 100 UNIT/ML X5UNITS SUBQ ONE (10:45)
[2022-03-15 10:48] LABS: % Iron Saturation 78 % (15-50); Iron 135 mcg/dL (50-170); Transferrin 124 mg/dL (203-362)
[2022-03-15 11:50] LABS: Hepatitis B Surface Antibody < 3.10 mIU/mL
[2022-03-15] MEDS: Perit. Dialysis with Dex 1.5 % 12,000 ML PERITONEAL SCH (11:50)
[2022-03-15 12:00] LABS: Hepatitis B Surface Antigen Nonreactive (Nonreactive)
[2022-03-15] MEDS: *HR* HYDROcodone/Acet 5/325 mg TABLET PO PRN ×2 (12:01→21:26)
[2022-03-15 17:38] LABS: Troponin I 0.76 ng/mL (< 0.04)
[2022-03-15 18:32] LABS: Appearance of Body Fluid Clear (Clear); Volume of Body Fluid 60 mL
[2022-03-15 18:34] LABS: Folate > 22.3 ng/mL (3.0-16.0); Vitamin B12 537 pg/mL (250-1100)
[2022-03-15] MEDS: Insulin DETEMIR 100 UNIT/ML X5UNITS SUBQ SCH (21:21)
[2022-03-16] MEDS: Norepinephrine 4 MG/254 ML IV.SOLN IVC SCH (02:22)
[2022-03-16] MEDS: Heparin 25,000UNIT/250ML 1/2NS 25,000 UNIT/250 ML IV.SOLN IVC SCH (02:23)
[2022-03-16 05:20] LABS: VBG Ionized Calcium 0.96 mmol/L (1.15-1.35)
[2022-03-16 05:25] LABS: Basophils % 0.1 %; Eosinophils # 0.4 K/mcL (0.0-0.6); Eosinophils % 3.4 %; Hematocrit 22.1 % (35.3-44.9); Hemoglobin 7.4 g/dL (11.5-15.4); Immature Granulocytes % 0.7 % (0-4); Lymphocytes # 0.9 K/mcL (0.6-4.6); Lymphocytes % 8.9 %; Mean Corpuscular HGB Conc 33.5 g/dL (31.6-35.5); Mean Corpuscular Hemoglobin 30.7 pg (28.0-33.3); Mean Corpuscular Volume 91.7 fL (83.0-100.0); Mean Platelet Volume 10.6 fL (9.4-12.4); Monocytes # 0.6 K/mcL (0.0-1.3); Monocytes % 6.2 %; Neutrophils # 8.4 K/mcL (1.6-8.9); Platelet Count 112 K/mcL (140-400); Red Blood Count 2.41 M/mcL (3.82-4.97); Red Cell Distribution Width 11.9 % (11.5-14.5); Segmented Neutrophils % 80.7 %; White Blood Count 10.4 K/mcL (4.3-11.1)
[2022-03-16 05:41] LABS: Albumin 3.2 g/dL (3.5-5.7); Albumin/Globulin Ratio 1.4 (1.1-2.2); Bilirubin,Direct 0.1 mg/dL (0.0-0.2); Bilirubin,Indirect 0.2 mg/dL (0.0-1.0); Bilirubin,Total 0.3 mg/dL (0.3-1.0); Globulin 2.3 g/dL (2.4-3.5); Magnesium 2.3 mg/dL (1.6-2.6); Phosphorous 16.6 mg/dL (2.7-4.5); Potassium 4.4 mEq/L (3.5-5.1); Total Protein 5.5 g/dL (6.4-8.9)
[2022-03-16] MEDS: Piperacillin/Tazobactam 3.375 GM in 0.9 % Sodium Chloride Mini Bag 100 ML IVPB SCH ×4 (06:19→20:40)
[2022-03-16] MEDS ORDERED: Aspirin 325 MG TABLET PO ONE (07:12)
[2022-03-16] MEDS: predniSONE 5 MG TABLET PO SCH (08:33)
[2022-03-16] MEDS: *HR* HYDROcodone/Acet 5/325 mg TABLET PO PRN (08:33)
[2022-03-16] MEDS: Insulin LISPRO 300 UNITS/3 ML VIAL SUBQ SCH ×4 (08:34→19:20)
[2022-03-16] MEDS ORDERED: 0.9 % Sodium Chloride 250 ML IVC PRN (09:22)
[2022-03-16] MEDS ORDERED: Albumin 25% 25gram/100mL 25 GM/100 ML IV.SOLN IVPB PRN (09:22)
[2022-03-16] MEDS ORDERED: *HR* Heparin 10,000 UNIT/10 ML VIAL IV PRN (09:22)
[2022-03-16] MEDS ORDERED: 0.9 % Sodium Chloride 2,000 ML PRIME SCH (09:30)
[2022-03-16] MEDS: Levothyroxine Sodium 100 MCG VIAL IVP SCH (12:28)
[2022-03-16] MEDS ORDERED: *HR* Heparin 5,000 UNIT/ML VIAL ONE (16:06)
[2022-03-16] MEDS: Pantoprazole 40 MG VIAL IVP SCH (17:20)
[2022-03-16] MEDS: Perit. Dialysis with Dex 1.5 % 12,000 ML PERITONEAL SCH (17:46)
[2022-03-16] MEDS ORDERED: Albumin 25% 25gram/100mL 25 GM/100 ML IV.SOLN ONE (18:10)
[2022-03-16] MEDS: Insulin DETEMIR 100 UNIT/ML X5UNITS SUBQ SCH (19:20)
[2022-03-16] MEDS ORDERED: *HR* Metoprolol 5 MG/5 ML VIAL IVP ONE (20:25)
[2022-03-16] MEDS: Tobramycin for INHALATION 300 MG/5 ML AMPUL IH SCH (21:37)
[2022-03-16] MEDS: Mag Hydrox/Al Hydrox/Simeth 30 ML UDC PO PRN (22:15)
[2022-03-16] MEDS: Mirtazapine 15 MG TABLET PO SCH (22:40)
[2022-03-17 05:24] LABS: Hematocrit 18.3 % (35.3-44.9); Hemoglobin 6.2 g/dL (11.5-15.4); Mean Corpuscular HGB Conc 33.9 g/dL (31.6-35.5)
[2022-03-17 05:26] LABS: Eosinophils # 0.1 K/mcL (0.0-0.6); Eosinophils % 3.3 %; Immature Granulocytes % 0.8 % (0-4); Immature Platelets 3.9 % (1.1-6.1); Lymphocytes # 0.8 K/mcL (0.6-4.6); Lymphocytes % 20.9 %; Mean Corpuscular Volume 91.5 fL (83.0-100.0); Mean Platelet Volume 10.7 fL (9.4-12.4); Monocytes # 0.3 K/mcL (0.0-1.3); Monocytes % 8.1 %; Neutrophils # 2.6 K/mcL (1.6-8.9); Red Cell Distribution Width 12.1 % (11.5-14.5); Segmented Neutrophils % 66.9 %; White Blood Count 3.9 K/mcL (4.3-11.1)
[2022-03-17 05:53] LABS: Platelet Count 82 K/mcL (140-400)
[2022-03-17 05:54] LABS: Albumin 2.8 g/dL (3.5-5.7); Albumin/Globulin Ratio 1.4 (1.1-2.2); Bilirubin,Direct 0.1 mg/dL (0.0-0.2); Bilirubin,Indirect 0.2 mg/dL (0.0-1.0); Bilirubin,Total 0.3 mg/dL (0.3-1.0); Calcium 7.8 mg/dL (8.6-10.3); Magnesium 2.2 mg/dL (1.6-2.6); Phosphorous 8.7 mg/dL (2.7-4.5); Platelet Estimate Decreased (Normal); Potassium 3.6 mEq/L (3.5-5.1); Total Protein 4.8 g/dL (6.4-8.9); Troponin I 0.25 ng/mL (< 0.04)
[2022-03-17] MEDS: Heparin 25,000UNIT/250ML 1/2NS 25,000 UNIT/250 ML IV.SOLN IVC SCH (05:59)
[2022-03-17] MEDS: Pantoprazole 40 MG VIAL IVP SCH ×2 (06:00→16:40)
[2022-03-17 06:04] LABS: Thyroid Stimulating Hormone 17.35 mcIU/mL (0.340-5.600)
[2022-03-17] MEDS: Tobramycin for INHALATION 300 MG/5 ML AMPUL IH SCH ×2 (07:19→21:58)
[2022-03-17] MEDS: Insulin LISPRO 300 UNITS/3 ML VIAL SUBQ SCH ×4 (08:05→19:52)
[2022-03-17] MEDS: predniSONE 5 MG TABLET PO SCH (08:10)
[2022-03-17] MEDS: Levothyroxine Sodium 100 MCG VIAL IVP SCH (08:12)
[2022-03-17] MEDS: Piperacillin/Tazobactam 3.375 GM in 0.9 % Sodium Chloride Mini Bag 100 ML IVPB SCH ×2 (08:12→22:27)
[2022-03-17] MEDS: Sulfamethoxazole/Trimeth SS 1 TAB PO SCH (08:24)
[2022-03-17] MEDS ORDERED: Levothyroxine Sodium 100 MCG VIAL IVP SCH (09:00)
[2022-03-17 09:47] LABS: Basophils % 0.4 %; Eosinophils # 0.2 K/mcL (0.0-0.6); Eosinophils % 3.9 %; Hematocrit 20.4 % (35.3-44.9); Hemoglobin 6.8 g/dL (11.5-15.4); Immature Granulocytes % 0.6 % (0-4); Lymphocytes # 0.9 K/mcL (0.6-4.6); Lymphocytes % 18.1 %; Mean Corpuscular HGB Conc 33.3 g/dL (31.6-35.5); Mean Corpuscular Hemoglobin 30.9 pg (28.0-33.3); Mean Corpuscular Volume 92.7 fL (83.0-100.0); Mean Platelet Volume 10.8 fL (9.4-12.4); Monocytes # 0.4 K/mcL (0.0-1.3); Monocytes % 7.2 %; Neutrophils # 3.4 K/mcL (1.6-8.9); Red Cell Distribution Width 12.1 % (11.5-14.5); Segmented Neutrophils % 69.8 %; White Blood Count 4.9 K/mcL (4.3-11.1)
[2022-03-17 09:48] LABS: Platelet Count 87 K/mcL (140-400)
[2022-03-17 12:15] LABS: INR 1.2; Prothrombin Time 13.7 Seconds (9.4-12.1)
[2022-03-17] MEDS ORDERED: *HR* Metoprolol 5 MG/5 ML VIAL IVP PRN (17:56)
[2022-03-17] MEDS ORDERED: Albumin Human 5% 12.5 GM/250 ML IV.SOLN IVC SCH (18:45)
[2022-03-17] MEDS ORDERED: Perit. Dialysis with Dex 1.5 % 12,000 ML PERITONEAL ONE (19:00)
[2022-03-17 19:13] LABS: Basophils % 0.2 %; Mean Platelet Volume 10.8 fL (9.4-12.4)
[2022-03-17 19:14] LABS: Eosinophils # 0.2 K/mcL (0.0-0.6); Hematocrit 26.9 % (35.3-44.9); Hemoglobin 9.3 g/dL (11.5-15.4); Immature Granulocytes % 0.7 % (0-4); Lymphocytes # 0.8 K/mcL (0.6-4.6); Lymphocytes % 14.5 %; Mean Corpuscular HGB Conc 34.6 g/dL (31.6-35.5); Mean Corpuscular Hemoglobin 31.4 pg (28.0-33.3); Mean Corpuscular Volume 90.9 fL (83.0-100.0); Monocytes # 0.4 K/mcL (0.0-1.3); Monocytes % 6.8 %; Red Blood Count 2.96 M/mcL (3.82-4.97); Segmented Neutrophils % 73.8 %; White Blood Count 5.5 K/mcL (4.3-11.1)
[2022-03-17 19:15] LABS: Neutrophils # 4.1 K/mcL (1.6-8.9); Platelet Count 90 K/mcL (140-400)
[2022-03-17] MEDS ORDERED: *HR* Metoprolol 5 MG/5 ML VIAL IVP ONE ×2 (19:41→20:39)
[2022-03-17] MEDS: Mirtazapine 15 MG TABLET PO SCH (19:51)
[2022-03-17] MEDS ORDERED: *HR* Metoprolol 5 MG/5 ML VIAL IVP STA (19:58)
[2022-03-17] MEDS ORDERED: *HR* Adenosine 6 MG/2 ML SYRINGE IVP ONE (20:21)
[2022-03-17] MEDS ORDERED: diazePAM 10 MG/2 ML SYRINGE ONE (20:22)
[2022-03-18 04:17] LABS: VBG Ionized Calcium 1.08 mmol/L (1.15-1.35)
[2022-03-18] MEDS: Norepinephrine 4 MG/254 ML IV.SOLN IVC SCH (04:18)
[2022-03-18 04:25] LABS: Basophils % 0.2 %
[2022-03-18 04:27] LABS: Eosinophils # 0.2 K/mcL (0.0-0.6); Eosinophils % 4.2 %; Hematocrit 25.6 % (35.3-44.9); Hemoglobin 8.8 g/dL (11.5-15.4); Immature Granulocytes % 0.4 % (0-4); Immature Platelets 4.7 % (1.1-6.1); Lymphocytes # 0.8 K/mcL (0.6-4.6); Lymphocytes % 14.6 %; Mean Corpuscular HGB Conc 34.4 g/dL (31.6-35.5); Mean Corpuscular Hemoglobin 31.1 pg (28.0-33.3); Mean Corpuscular Volume 90.5 fL (83.0-100.0); Mean Platelet Volume 10.8 fL (9.4-12.4); Monocytes # 0.5 K/mcL (0.0-1.3); Monocytes % 9.8 %; Neutrophils # 3.7 K/mcL (1.6-8.9); Red Blood Count 2.83 M/mcL (3.82-4.97); Red Cell Distribution Width 13.4 % (11.5-14.5); Segmented Neutrophils % 70.8 %; White Blood Count 5.2 K/mcL (4.3-11.1)
[2022-03-18 04:28] LABS: Platelet Count 94 K/mcL (140-400)
[2022-03-18 04:43] LABS: Albumin 3.1 g/dL (3.5-5.7); Albumin/Globulin Ratio 1.6 (1.1-2.2); Bilirubin,Direct 0.1 mg/dL (0.0-0.2); Bilirubin,Indirect 0.2 mg/dL (0.0-1.0); Bilirubin,Total 0.3 mg/dL (0.3-1.0); Globulin 1.9 g/dL (2.4-3.5); Magnesium 2.2 mg/dL (1.6-2.6); Phosphorous 7.8 mg/dL (2.7-4.5); Potassium 3.4 mEq/L (3.5-5.1); Troponin I 0.14 ng/mL (< 0.04)
[2022-03-18] MEDS: Pantoprazole 40 MG VIAL IVP SCH ×2 (05:41→16:49)
[2022-03-18] MEDS ORDERED: IOPAMIDOL ONE (07:11)
[2022-03-18] MEDS ORDERED: Heparin 1,000 UNITS/500 mL 500 ML ONE ×2 (07:11→07:14)
[2022-03-18] MEDS: Insulin LISPRO 300 UNITS/3 ML VIAL SUBQ SCH ×4 (07:23→20:57)
[2022-03-18] MEDS: predniSONE 5 MG TABLET PO SCH (08:47)
[2022-03-18] MEDS: Piperacillin/Tazobactam 3.375 GM in 0.9 % Sodium Chloride Mini Bag 100 ML IVPB SCH (08:47)
[2022-03-18] MEDS: Levothyroxine Sodium 100 MCG VIAL IVP SCH (08:47)
[2022-03-18] MEDS: Tobramycin for INHALATION 300 MG/5 ML AMPUL IH SCH ×2 (09:53→21:51)
[2022-03-18] MEDS ORDERED: Calcium Gluconate 1gm/50mL 1 GM/50 ML BAG IVPB ONE (11:06)
[2022-03-18 14:40] LABS: Basophils % 0.2 %; Eosinophils # 0.3 K/mcL (0.0-0.6); Eosinophils % 4.4 %; Hemoglobin 9.2 g/dL (11.5-15.4); Immature Granulocytes % 0.7 % (0-4); Lymphocytes # 0.7 K/mcL (0.6-4.6); Mean Corpuscular HGB Conc 32.9 g/dL (31.6-35.5); Mean Corpuscular Hemoglobin 30.7 pg (28.0-33.3); Mean Corpuscular Volume 93.3 fL (83.0-100.0); Mean Platelet Volume 10.8 fL (9.4-12.4); Monocytes # 0.4 K/mcL (0.0-1.3); Monocytes % 6.9 %; Red Cell Distribution Width 13.5 % (11.5-14.5); Segmented Neutrophils % 76.8 %; White Blood Count 5.9 K/mcL (4.3-11.1)
[2022-03-18 14:41] LABS: Neutrophils # 4.5 K/mcL (1.6-8.9); Platelet Count 90 K/mcL (140-400)
[2022-03-18] MEDS ORDERED: Perit. Dialysis with Dex 1.5 % 12,000 ML PERITONEAL ONE (17:00)
[2022-03-18] MEDS: Mirtazapine 15 MG TABLET PO SCH (20:49)
[2022-03-18] MEDS: Ondansetron 4 MG/2 ML VIAL IVP PRN (23:06)
[2022-03-19 04:49] LABS: Basophils % 0.2 %; Eosinophils # 0.3 K/mcL (0.0-0.6); Eosinophils % 5.1 %; Hematocrit 26.1 % (35.3-44.9); Hemoglobin 8.5 g/dL (11.5-15.4); Immature Granulocytes % 0.6 % (0-4); Lymphocytes # 1.1 K/mcL (0.6-4.6); Lymphocytes % 20.4 %; Mean Corpuscular HGB Conc 32.6 g/dL (31.6-35.5); Mean Corpuscular Hemoglobin 30.4 pg (28.0-33.3); Mean Corpuscular Volume 93.2 fL (83.0-100.0); Mean Platelet Volume 10.9 fL (9.4-12.4); Monocytes # 0.5 K/mcL (0.0-1.3); Monocytes % 9.9 %; Neutrophils # 3.5 K/mcL (1.6-8.9); Platelet Count 103 K/mcL (140-400); Red Cell Distribution Width 13.4 % (11.5-14.5); Segmented Neutrophils % 63.8 %; White Blood Count 5.4 K/mcL (4.3-11.1)
[2022-03-19 05:08] LABS: Albumin 2.9 g/dL (3.5-5.7); Albumin/Globulin Ratio 1.5 (1.1-2.2); Bilirubin,Direct 0.1 mg/dL (0.0-0.2); Bilirubin,Indirect 0.1 mg/dL (0.0-1.0); Bilirubin,Total 0.2 mg/dL (0.3-1.0); Phosphorous 7.5 mg/dL (2.7-4.5); Potassium 4.1 mEq/L (3.5-5.1); Total Protein 4.9 g/dL (6.4-8.9)
[2022-03-19 05:29] LABS: Thyroid Stimulating Hormone 11.794 mcIU/mL (0.340-5.600)
[2022-03-19] MEDS: Pantoprazole 40 MG VIAL IVP SCH (05:50)
[2022-03-19] MEDS: Tobramycin for INHALATION 300 MG/5 ML AMPUL IH SCH ×2 (07:14→21:08)
[2022-03-19] MEDS: Insulin LISPRO 300 UNITS/3 ML VIAL SUBQ SCH ×4 (07:26→20:11)
[2022-03-19] MEDS ORDERED: *HR* Metoprolol 5 MG/5 ML VIAL IVP PRN (08:27)
[2022-03-19] MEDS: Sulfamethoxazole/Trimeth SS 1 TAB PO SCH (09:21)
[2022-03-19] MEDS: predniSONE 5 MG TABLET PO SCH (09:21)
[2022-03-19] MEDS: Levothyroxine Sodium 100 MCG VIAL IVP SCH (09:21)
[2022-03-19 09:55] LABS: RBC,Peritoneal Fluid < 2000 RBC/mcL
[2022-03-19] MEDS ORDERED: Lidocaine -MPF 2% 2 ML VIAL ONE (09:55)
[2022-03-19] MEDS ORDERED: *HR* Propofol 200 MG/20 ML VIAL IVP ONE (09:55)
[2022-03-19] MEDS ORDERED: *HR* Etomidate 40 MG/20 ML VIAL IVP ONE (09:55)
[2022-03-19 09:57] LABS: Appearance of Peritoneal Fl CLEAR (Clear)
[2022-03-19] MEDS ORDERED: Lidocaine -MPF 4% 5 ML AMPUL ONE (10:03)
[2022-03-19 11:45] LABS: Basophils,Peritoneal Fluid 0 %
[2022-03-19] MEDS: DilTIAZem 50 MG/50 ML IV.SOLN IVC SCH ×2 (15:20→20:09)
[2022-03-19] MEDS ORDERED: Perit. Dialysis with Dex 2.5 % 12,000 ML PERITONEAL ONE (19:00)
[2022-03-19] MEDS ORDERED: Perit. Dialysis with Dex 1.5 % 12,000 ML PERITONEAL ONE (19:00)
[2022-03-19] MEDS: Mirtazapine 15 MG TABLET PO SCH (20:08)
[2022-03-20 04:00] LABS: Basophils % 0.3 %; Eosinophils # 0.3 K/mcL (0.0-0.6); Eosinophils % 4.5 %; Hematocrit 28.3 % (35.3-44.9); Hemoglobin 9.1 g/dL (11.5-15.4); Immature Granulocytes % 0.6 % (0-4); Lymphocytes # 1.4 K/mcL (0.6-4.6); Lymphocytes % 21.3 %; Mean Corpuscular HGB Conc 32.2 g/dL (31.6-35.5); Mean Corpuscular Hemoglobin 30.4 pg (28.0-33.3); Mean Corpuscular Volume 94.6 fL (83.0-100.0); Mean Platelet Volume 10.9 fL (9.4-12.4); Monocytes # 0.6 K/mcL (0.0-1.3); Monocytes % 9.2 %; Neutrophils # 4.1 K/mcL (1.6-8.9); Platelet Count 115 K/mcL (140-400); Red Blood Count 2.99 M/mcL (3.82-4.97); Red Cell Distribution Width 13.5 % (11.5-14.5); Segmented Neutrophils % 64.1 %; White Blood Count 6.4 K/mcL (4.3-11.1)
[2022-03-20 04:21] LABS: Albumin/Globulin Ratio 1.3 (1.1-2.2); Bilirubin,Indirect 0.3 mg/dL (0.0-1.0); Bilirubin,Total 0.3 mg/dL (0.3-1.0); Calcium 8.1 mg/dL (8.6-10.3); Globulin 2.3 g/dL (2.4-3.5); Magnesium 2.1 mg/dL (1.6-2.6); Phosphorous 8.5 mg/dL (2.7-4.5); Potassium 4.2 mEq/L (3.5-5.1); Total Protein 5.3 g/dL (6.4-8.9)
[2022-03-20] MEDS: DilTIAZem 50 MG/50 ML IV.SOLN IVC SCH ×5 (08:15→23:34)
[2022-03-20] MEDS: predniSONE 5 MG TABLET PO SCH (08:26)
[2022-03-20] MEDS: Insulin LISPRO 300 UNITS/3 ML VIAL SUBQ SCH ×4 (08:27→21:36)
[2022-03-20] MEDS: Tobramycin for INHALATION 300 MG/5 ML AMPUL IH SCH ×2 (10:49→22:24)
[2022-03-20] MEDS ORDERED: Argatroban 250 MG in 0.9 % Sodium Chloride 250 ML IVC SCH (12:15)
[2022-03-20 13:13] LABS: Hematocrit 27.9 % (35.3-44.9); Hemoglobin 9.3 g/dL (11.5-15.4)
[2022-03-20 13:30] LABS: Albumin 3.2 g/dL (3.5-5.7); Albumin/Globulin Ratio 1.5 (1.1-2.2); Bilirubin,Direct 0.1 mg/dL (0.0-0.2); Bilirubin,Indirect 0.2 mg/dL (0.0-1.0); Bilirubin,Total 0.3 mg/dL (0.3-1.0); Globulin 2.1 g/dL (2.4-3.5); Total Protein 5.3 g/dL (6.4-8.9)
[2022-03-20] MEDS: *HR* Metoprolol 5 MG/5 ML VIAL IVP PRN (14:13)
[2022-03-20] MEDS ORDERED: Perit. Dialysis with Dex 2.5 % 12,000 ML PERITONEAL ONE (19:00)
[2022-03-20] MEDS ORDERED: Perit. Dialysis with Dex 1.5 % 12,000 ML PERITONEAL ONE (19:00)
[2022-03-20] MEDS: Mirtazapine 15 MG TABLET PO SCH (19:49)
[2022-03-20 19:58] LABS: Hematocrit 24.7 % (35.3-44.9)
[2022-03-21] MEDS: Ondansetron 4 MG/2 ML VIAL IVP PRN ×2 (00:33→22:19)
[2022-03-21 03:23] LABS: Basophils % 0.2 %; Eosinophils # 0.2 K/mcL (0.0-0.6); Eosinophils % 4.4 %; Hematocrit 26.2 % (35.3-44.9); Hemoglobin 8.5 g/dL (11.5-15.4); Immature Granulocytes % 0.6 % (0-4); Lymphocytes # 1.5 K/mcL (0.6-4.6); Lymphocytes % 31.2 %; Mean Corpuscular HGB Conc 32.4 g/dL (31.6-35.5); Mean Corpuscular Hemoglobin 31.4 pg (28.0-33.3); Mean Corpuscular Volume 96.7 fL (83.0-100.0); Mean Platelet Volume 10.5 fL (9.4-12.4); Monocytes # 0.5 K/mcL (0.0-1.3); Monocytes % 9.6 %; Neutrophils # 2.6 K/mcL (1.6-8.9); Platelet Count 120 K/mcL (140-400); Red Blood Count 2.71 M/mcL (3.82-4.97); Red Cell Distribution Width 13.4 % (11.5-14.5); White Blood Count 4.8 K/mcL (4.3-11.1)
[2022-03-21 03:43] LABS: Albumin 2.8 g/dL (3.5-5.7); Albumin/Globulin Ratio 1.3 (1.1-2.2); Bilirubin,Direct 0.1 mg/dL (0.0-0.2); Bilirubin,Indirect 0.2 mg/dL (0.0-1.0); Bilirubin,Total 0.3 mg/dL (0.3-1.0); Globulin 2.2 g/dL (2.4-3.5); Magnesium 2.3 mg/dL (1.6-2.6); Phosphorous 6.9 mg/dL (2.7-4.5); Potassium 4.3 mEq/L (3.5-5.1)
[2022-03-21] MEDS: predniSONE 5 MG TABLET PO SCH (07:50)
[2022-03-21] MEDS: Insulin LISPRO 300 UNITS/3 ML VIAL SUBQ SCH ×4 (07:50→22:13)
[2022-03-21] MEDS: Tobramycin for INHALATION 300 MG/5 ML AMPUL IH SCH ×2 (11:28→20:36)
[2022-03-21] MEDS: *HR* Metoprolol 5 MG/5 ML VIAL IVP PRN ×2 (12:43→19:28)
[2022-03-21] MEDS ORDERED: *HR* Digoxin 0.5 MG/2 ML AMPUL IVP ONE ×2 (12:46→17:47)
[2022-03-21] MEDS: Apixaban 5 MG TABLET PO SCH ×2 (15:20→20:31)
[2022-03-21 18:28] LABS: Hematocrit 26.4 % (35.3-44.9); Hemoglobin 8.5 g/dL (11.5-15.4)
[2022-03-21] MEDS ORDERED: Perit. Dialysis with Dex 2.5 % 12,000 ML PERITONEAL ONE (19:00)
[2022-03-21] MEDS ORDERED: Perit. Dialysis with Dex 1.5 % 12,000 ML PERITONEAL ONE (19:00)
[2022-03-21] MEDS: Mirtazapine 15 MG TABLET PO SCH (20:31)
[2022-03-22 05:53] LABS: Basophils % 0.4 %; Eosinophils # 0.2 K/mcL (0.0-0.6); Eosinophils % 3.7 %; Hemoglobin 8.2 g/dL (11.5-15.4); Immature Granulocytes % 0.7 % (0-4); Lymphocytes # 1.4 K/mcL (0.6-4.6); Lymphocytes % 31.3 %; Mean Corpuscular HGB Conc 31.5 g/dL (31.6-35.5); Mean Corpuscular Hemoglobin 30.9 pg (28.0-33.3); Mean Corpuscular Volume 98.1 fL (83.0-100.0); Mean Platelet Volume 10.9 fL (9.4-12.4); Monocytes # 0.4 K/mcL (0.0-1.3); Monocytes % 9.7 %; Neutrophils # 2.5 K/mcL (1.6-8.9); Platelet Count 120 K/mcL (140-400); Red Blood Count 2.65 M/mcL (3.82-4.97); Red Cell Distribution Width 13.3 % (11.5-14.5); Segmented Neutrophils % 54.2 %; White Blood Count 4.5 K/mcL (4.3-11.1)
[2022-03-22 06:11] LABS: Albumin/Globulin Ratio 1.5 (1.1-2.2); Bilirubin,Direct 0.1 mg/dL (0.0-0.2); Bilirubin,Indirect 0.1 mg/dL (0.0-1.0); Bilirubin,Total 0.2 mg/dL (0.3-1.0); Calcium 8.3 mg/dL (8.6-10.3); Magnesium 2.5 mg/dL (1.6-2.6)
[2022-03-22] MEDS: Insulin LISPRO 300 UNITS/3 ML VIAL SUBQ SCH ×3 (07:41→16:57)
[2022-03-22] MEDS: predniSONE 5 MG TABLET PO SCH (09:17)
[2022-03-22] MEDS: Apixaban 5 MG TABLET PO SCH ×2 (09:17→22:27)
[2022-03-22] MEDS: Sulfamethoxazole/Trimeth SS 1 TAB PO SCH (09:20)
[2022-03-22] MEDS: Tobramycin for INHALATION 300 MG/5 ML AMPUL IH SCH ×2 (10:26→20:34)
[2022-03-22] MEDS: Ondansetron 4 MG/2 ML VIAL IVP PRN ×2 (14:35→22:27)
[2022-03-22 14:41] LABS: Hematocrit 26.5 % (35.3-44.9); Hemoglobin 8.4 g/dL (11.5-15.4)
[2022-03-22] MEDS ORDERED: Perit. Dialysis with Dex 1.5 % 12,000 ML PERITONEAL ONE (19:00)
[2022-03-22] MEDS ORDERED: Perit. Dialysis with Dex 2.5 % 12,000 ML PERITONEAL ONE (19:00)
[2022-03-22] MEDS: Mirtazapine 15 MG TABLET PO SCH (22:26)
[2022-03-23 05:31] LABS: Hematocrit 26.4 % (35.3-44.9); Hemoglobin 8.2 g/dL (11.5-15.4)
[2022-03-23 05:38] LABS: INR 1.1; Prothrombin Time 12.7 Seconds (9.4-12.1)
[2022-03-23 05:50] LABS: Albumin/Globulin Ratio 1.4 (1.1-2.2); Bilirubin,Indirect 0.3 mg/dL (0.0-1.0); Bilirubin,Total 0.3 mg/dL (0.3-1.0); Globulin 2.2 g/dL (2.4-3.5); Total Protein 5.2 g/dL (6.4-8.9)
[2022-03-23] MEDS: Tobramycin for INHALATION 300 MG/5 ML AMPUL IH SCH (07:19)
[2022-03-23] MEDS: Insulin LISPRO 300 UNITS/3 ML VIAL SUBQ SCH ×5 (09:03→20:01)
[2022-03-23] MEDS: Apixaban 5 MG TABLET PO SCH (09:14)
[2022-03-23] MEDS: predniSONE 5 MG TABLET PO SCH (09:14)
[2022-03-23] MEDS ORDERED: *HR* Heparin 5,000 UNIT/ML VIAL IVP ONE (16:36)
[2022-03-23] MEDS ORDERED: *HR* Heparin 5,000 UNIT/ML VIAL IVP PRN (16:36)
[2022-03-23] MEDS ORDERED: Heparin 25,000UNIT/250ML 1/2NS 25,000 UNIT/250 ML IV.SOLN IVC SCH (16:45)
[2022-03-23] MEDS: Ondansetron 4 MG/2 ML VIAL IVP PRN (17:08)
[2022-03-23 17:28] LABS: INR 1.2; Prothrombin Time 13.1 Seconds (9.4-12.1)
[2022-03-23 17:31] LABS: Activated Partial Thrombo Time 37.8 Seconds (26.0-36.0)
[2022-03-23] MEDS ORDERED: Warfarin perPT PO PRN (18:00)
[2022-03-23] MEDS ORDERED: *HR* Warfarin 2.5 MG TABLET PO ONE (18:00)
[2022-03-23] MEDS ORDERED: Perit. Dialysis with Dex 1.5 % 12,000 ML PERITONEAL ONE (19:00)
[2022-03-23] MEDS ORDERED: Perit. Dialysis with Dex 2.5 % 12,000 ML PERITONEAL ONE (19:00)
[2022-03-23] MEDS: Mirtazapine 15 MG TABLET PO SCH (20:00)
[2022-03-23] MEDS ORDERED: Prochlorperazine 10 MG/2 ML VIAL IVP ONE (23:08)
[2022-03-23 23:36] LABS: INR 1.1; Prothrombin Time 12.3 Seconds (9.4-12.1)
[2022-03-23 23:40] LABS: Hematocrit 26.2 % (35.3-44.9); Hemoglobin 8.3 g/dL (11.5-15.4); Mean Corpuscular HGB Conc 31.7 g/dL (31.6-35.5); Mean Corpuscular Hemoglobin 31.2 pg (28.0-33.3); Mean Corpuscular Volume 98.5 fL (83.0-100.0); Mean Platelet Volume 10.6 fL (9.4-12.4); Platelet Count 140 K/mcL (140-400); Red Blood Count 2.66 M/mcL (3.82-4.97); Red Cell Distribution Width 13.4 % (11.5-14.5); White Blood Count 4.2 K/mcL (4.3-11.1)
[2022-03-23 23:45] LABS: Calcium 7.7 mg/dL (8.6-10.3); Potassium 5.4 mEq/L (3.5-5.1)
[2022-03-24] LABS: Activated Partial Thrombo Time 164.9 Seconds (26.0-36.0); Heparin anti-factor XA UFH 1.29 IU/mL (0.30-0.70)
[2022-03-24 07:57] LABS: Activated Partial Thrombo Time 64.7 Seconds (26.0-36.0)
[2022-03-24] MEDS: Heparin 25,000UNIT/250ML 1/2NS 25,000 UNIT/250 ML IV.SOLN IVC SCH ×2 (09:05→20:15)
[2022-03-24] MEDS: Sulfamethoxazole/Trimeth SS 1 TAB PO SCH (09:08)
[2022-03-24] MEDS: predniSONE 5 MG TABLET PO SCH (09:08)
[2022-03-24] MEDS: Insulin LISPRO 300 UNITS/3 ML VIAL SUBQ SCH ×4 (09:09→20:23)
[2022-03-24 09:50] LABS: Prothrombin Time 11.3 Seconds (9.4-12.1)
[2022-03-24 10:20] LABS: Basophils % 0.3 %; Eosinophils # 0.1 K/mcL (0.0-0.6); Hemoglobin 8.2 g/dL (11.5-15.4); Immature Granulocytes % 1.1 % (0-4); Lymphocytes # 1.3 K/mcL (0.6-4.6); Mean Corpuscular HGB Conc 31.5 g/dL (31.6-35.5); Mean Corpuscular Hemoglobin 31.2 pg (28.0-33.3); Mean Corpuscular Volume 98.9 fL (83.0-100.0); Mean Platelet Volume 10.1 fL (9.4-12.4); Monocytes # 0.5 K/mcL (0.0-1.3); Monocytes % 13.1 %; Neutrophils # 1.6 K/mcL (1.6-8.9); Platelet Count 114 K/mcL (140-400); Red Blood Count 2.63 M/mcL (3.82-4.97); Red Cell Distribution Width 13.3 % (11.5-14.5); Segmented Neutrophils % 44.5 %; White Blood Count 3.5 K/mcL (4.3-11.1)
[2022-03-24 10:39] LABS: Calcium 7.8 mg/dL (8.6-10.3); Potassium 5.4 mEq/L (3.5-5.1)
[2022-03-24] MEDS ORDERED: *HR* Warfarin 2.5 MG TABLET PO ONE ×2 (18:00→18:15)
[2022-03-24] MEDS ORDERED: Perit. Dialysis with Dex 1.5 % 12,000 ML PERITONEAL ONE (19:00)
[2022-03-24] MEDS ORDERED: Perit. Dialysis with Dex 2.5 % 12,000 ML PERITONEAL ONE (19:00)
[2022-03-24] MEDS: Ondansetron 4 MG/2 ML VIAL IVP PRN (20:22)
[2022-03-24] MEDS: Mirtazapine 15 MG TABLET PO SCH (20:22)
[2022-03-25 03:47] LABS: Basophils % 0.5 %; Eosinophils # 0.1 K/mcL (0.0-0.6); Eosinophils % 3.3 %; Hematocrit 26.7 % (35.3-44.9); Hemoglobin 8.2 g/dL (11.5-15.4); Immature Granulocytes % 1.6 % (0-4); Lymphocytes # 1.5 K/mcL (0.6-4.6); Lymphocytes % 41.6 %; Mean Corpuscular HGB Conc 30.7 g/dL (31.6-35.5); Mean Corpuscular Hemoglobin 30.5 pg (28.0-33.3); Mean Corpuscular Volume 99.3 fL (83.0-100.0); Mean Platelet Volume 10.6 fL (9.4-12.4); Monocytes # 0.4 K/mcL (0.0-1.3); Monocytes % 11.5 %; Neutrophils # 1.5 K/mcL (1.6-8.9); Platelet Count 131 K/mcL (140-400); Red Blood Count 2.69 M/mcL (3.82-4.97); Red Cell Distribution Width 13.6 % (11.5-14.5); Segmented Neutrophils % 41.5 %; White Blood Count 3.7 K/mcL (4.3-11.1)
[2022-03-25 03:51] LABS: Prothrombin Time 11.1 Seconds (9.4-12.1)
[2022-03-25 03:53] LABS: Activated Partial Thrombo Time 67.4 Seconds (26.0-36.0)
[2022-03-25 04:12] LABS: Potassium 5.6 mEq/L (3.5-5.1)
[2022-03-25] MEDS ORDERED: Calcium Gluconate 1gm/50mL 1 GM/50 ML BAG IVPB ONE (09:05)
[2022-03-25] MEDS: Insulin LISPRO 300 UNITS/3 ML VIAL SUBQ SCH ×4 (09:52→22:49)
[2022-03-25] MEDS: SODIUM ZIRCONIUM CYCLOSILICATE 5 GM POWD.PACK PO SCH (09:52)
[2022-03-25] MEDS: predniSONE 5 MG TABLET PO SCH (09:52)
[2022-03-25 10:29] LABS: Magnesium 2.4 mg/dL (1.6-2.6); Phosphorous 7.2 mg/dL (2.7-4.5)
[2022-03-25 14:05] LABS: Calcium 8.4 mg/dL (8.6-10.3); Potassium 5.4 mEq/L (3.5-5.1)
[2022-03-25] MEDS ORDERED: SODIUM ZIRCONIUM CYCLOSILICATE 5 GM POWD.PACK PO SCH (17:00)
[2022-03-25] MEDS ORDERED: *HR* Warfarin 5 MG TABLET PO ONE (18:00)
[2022-03-25] MEDS ORDERED: Perit. Dialysis with Dex 1.5 % 12,000 ML PERITONEAL ONE (19:00)
[2022-03-25] MEDS ORDERED: Perit. Dialysis with Dex 2.5 % 12,000 ML PERITONEAL ONE (19:00)
[2022-03-25] MEDS: Ondansetron 4 MG/2 ML VIAL IVP PRN (19:29)
[2022-03-25] MEDS: Mirtazapine 15 MG TABLET PO SCH (20:23)
[2022-03-25] MEDS: Heparin 25,000UNIT/250ML 1/2NS 25,000 UNIT/250 ML IV.SOLN IVC SCH (22:40)
[2022-03-26] MEDS: Mag Hydrox/Al Hydrox/Simeth 30 ML UDC PO PRN (00:10)
[2022-03-26 06:46] LABS: Basophils % 0.6 %; Eosinophils # 0.1 K/mcL (0.0-0.6); Eosinophils % 2.9 %; Hematocrit 24.3 % (35.3-44.9); Hemoglobin 7.6 g/dL (11.5-15.4); Immature Granulocytes % 1.3 % (0-4); Lymphocytes # 1.2 K/mcL (0.6-4.6); Mean Corpuscular HGB Conc 31.3 g/dL (31.6-35.5); Mean Corpuscular Hemoglobin 30.9 pg (28.0-33.3); Mean Corpuscular Volume 98.8 fL (83.0-100.0); Mean Platelet Volume 10.7 fL (9.4-12.4); Monocytes # 0.4 K/mcL (0.0-1.3); Neutrophils # 1.4 K/mcL (1.6-8.9); Platelet Count 112 K/mcL (140-400); Red Blood Count 2.46 M/mcL (3.82-4.97); Red Cell Distribution Width 13.7 % (11.5-14.5); Segmented Neutrophils % 45.2 %; White Blood Count 3.1 K/mcL (4.3-11.1)
[2022-03-26 06:53] LABS: INR 1.3; Prothrombin Time 14.8 Seconds (9.4-12.1)
[2022-03-26 07:24] LABS: Calcium 8.4 mg/dL (8.6-10.3); Magnesium 2.5 mg/dL (1.6-2.6); Potassium 5.2 mEq/L (3.5-5.1)
[2022-03-26] MEDS: predniSONE 5 MG TABLET PO SCH (07:39)
[2022-03-26] MEDS: SODIUM ZIRCONIUM CYCLOSILICATE 5 GM POWD.PACK PO SCH (07:39)
[2022-03-26] MEDS: Sulfamethoxazole/Trimeth SS 1 TAB PO SCH (07:39)
[2022-03-26] MEDS: Insulin LISPRO 300 UNITS/3 ML VIAL SUBQ SCH ×4 (07:40→21:17)
[2022-03-26] MEDS: *HR* Heparin 5,000 UNIT/ML VIAL IVP PRN (12:06)
[2022-03-26] MEDS ORDERED: *HR* Warfarin 5 MG TABLET PO ONE (18:00)
[2022-03-26] MEDS ORDERED: Perit. Dialysis with Dex 2.5 % 6,000 ML PERITONEAL ONE (19:00)
[2022-03-26] MEDS ORDERED: Perit. Dialysis with Dex 1.5 % 6,000 ML PERITONEAL ONE (19:00)
[2022-03-26] MEDS: Mirtazapine 15 MG TABLET PO SCH (21:24)
[2022-03-26] MEDS: Ondansetron 4 MG/2 ML VIAL IVP PRN (21:30)
[2022-03-27] MEDS: Heparin 25,000UNIT/250ML 1/2NS 25,000 UNIT/250 ML IV.SOLN IVC SCH (01:59)
[2022-03-27 02:02] LABS: Basophils % 0.5 %; Eosinophils # 0.1 K/mcL (0.0-0.6); Hematocrit 24.8 % (35.3-44.9); Hemoglobin 7.7 g/dL (11.5-15.4); Immature Granulocytes % 1.6 % (0-4); Lymphocytes # 1.3 K/mcL (0.6-4.6); Lymphocytes % 35.3 %; Mean Corpuscular Hemoglobin 30.9 pg (28.0-33.3); Mean Corpuscular Volume 99.6 fL (83.0-100.0); Mean Platelet Volume 10.2 fL (9.4-12.4); Monocytes # 0.4 K/mcL (0.0-1.3); Monocytes % 11.7 %; Neutrophils # 1.8 K/mcL (1.6-8.9); Platelet Count 112 K/mcL (140-400); Red Blood Count 2.49 M/mcL (3.82-4.97); Red Cell Distribution Width 13.9 % (11.5-14.5); Segmented Neutrophils % 47.9 %; White Blood Count 3.7 K/mcL (4.3-11.1)
[2022-03-27 02:12] LABS: Heparin anti-factor XA UFH 0.16 IU/mL (0.30-0.70); INR 1.8; Prothrombin Time 19.8 Seconds (9.4-12.1)
[2022-03-27 02:14] LABS: Activated Partial Thrombo Time 49.1 Seconds (26.0-36.0)
[2022-03-27 02:27] LABS: Calcium 8.4 mg/dL (8.6-10.3); Magnesium 2.7 mg/dL (1.6-2.6); Potassium 5.9 mEq/L (3.5-5.1)
[2022-03-27] MEDS: *HR* Heparin 5,000 UNIT/ML VIAL IVP PRN (03:33)
[2022-03-27 04:34] VITALS: TEMP 97.9
[2022-03-27 07:47] VITALS: PULSE 118
[2022-03-27] MEDS ORDERED: Calcium Gluconate 1gm/50mL 1 GM/50 ML BAG IVPB ONE (08:08)
[2022-03-27] MEDS: predniSONE 5 MG TABLET PO SCH (08:44)
[2022-03-27] MEDS: Insulin LISPRO 300 UNITS/3 ML VIAL SUBQ SCH ×2 (08:45→12:01)
[2022-03-27] MEDS ORDERED: SODIUM ZIRCONIUM CYCLOSILICATE 5 GM POWD.PACK PO SCH (09:00)
[2022-03-27 11:16] VITALS: BP 114/77; O2SAT 96
[2022-03-27] MEDS ORDERED: *HR* Warfarin 2.5 MG TABLET PO ONE (18:00)
== END 2022-03-27 15:14 | disposition home or self-care (01) | DRG 175 ==
LOC: ICNU 15:56 → EMEROOARM 15:56 → SUATTDRO 03-15 01:05 → ICNU 03-15 01:28 → 2ANU 03-20 12:27
PROVIDERS: ADMIT Internal Medicine; ATTEND Family Medicine
PROC: ENDOEBX (2022-03-19 08:15)

== ENCOUNTER 2022-05-04 05:04 | Inpatient (IN) ==
[2022-05-04] MEDS ORDERED: 0.9 % Sodium Chloride 500 ML IVC ONE (05:20)
[2022-05-04 06:24] LABS: VBG HCO3 17 mEq/L (21-27); VBG PCO2 37 mmHg (41-51); VBG PH 7.26 pH Units (7.32-7.42); VBG PO2 96 mmHg (25-50)
[2022-05-04 06:27] LABS: Basophils % 0.3 %; Eosinophils # 0.3 K/mcL (0.0-0.6); Eosinophils % 2.8 %; Hematocrit 31.3 % (35.3-44.9); Hemoglobin 9.9 g/dL (11.5-15.4); Immature Granulocytes % 0.6 % (0-4); Lymphocytes # 2.7 K/mcL (0.6-4.6); Lymphocytes % 23.6 %; Mean Corpuscular HGB Conc 31.6 g/dL (31.6-35.5); Mean Corpuscular Hemoglobin 30.7 pg (28.0-33.3); Mean Corpuscular Volume 97.2 fL (83.0-100.0); Mean Platelet Volume 10.9 fL (9.4-12.4); Monocytes # 0.8 K/mcL (0.0-1.3); Monocytes % 7.1 %; Neutrophils # 7.6 K/mcL (1.6-8.9); Platelet Count 204 K/mcL (140-400); Red Blood Count 3.22 M/mcL (3.82-4.97); Red Cell Distribution Width 14.2 % (11.5-14.5); Segmented Neutrophils % 65.6 %; White Blood Count 11.5 K/mcL (4.3-11.1)
[2022-05-04 06:33] LABS: INR 1.7; Prothrombin Time 19.2 Seconds (9.4-12.1)
[2022-05-04 06:36] LABS: Activated Partial Thrombo Time 30.4 Seconds (26.0-36.0)
[2022-05-04 06:44] LABS: BUN/Creatinine Ratio 5 (6-26); Blood Urea Nitrogen 61 mg/dL (8-23); Calcium 8.4 mg/dL (8.6-10.3); Carbon Dioxide 16 mEq/L (23-29); Chloride 104 mEq/L (98-107); Glucose 107 mg/dL (70-105); Osmolality,Calculated 314 (280-300); Potassium 3.9 mEq/L (3.5-5.1); Sodium 143 mEq/L (136-145); Troponin I < 0.03 ng/mL (< 0.04); eGFR For African Americans 3 (> 60); eGFR For Non-African Americans 3 (> 60)
[2022-05-04] MEDS ORDERED: 0.9 % Sodium Chloride 1,000 ML ONE (07:15)
[2022-05-04] MEDS ORDERED: 0.9 % Sodium Chloride 1,000 ML IVC ONE (07:19)
[2022-05-04] MEDS ORDERED: *HR* Midazolam HCl 2 MG/2 ML VIAL IVP ONE (07:30)
[2022-05-04] MEDS ORDERED: Piperacillin/Tazobactam 3.375 GM in 0.9 % Sodium Chloride Mini Bag 100 ML IVPB ONE (07:32)
[2022-05-04] MEDS ORDERED: Iopamidol - 370 500 ML MLS IVP ONE (07:33)
[2022-05-04] MEDS: Norepinephrine 4 MG/254 ML IV.SOLN IVC SCH ×5 (08:46→22:05)
[2022-05-04 10:46] LABS: Albumin 3.1 g/dL (3.5-5.7); Albumin/Globulin Ratio 1.2 (1.1-2.2); Bilirubin,Indirect 0.3 mg/dL (0.0-1.0); Bilirubin,Total 0.3 mg/dL (0.3-1.0); Globulin 2.5 g/dL (2.4-3.5); Total Protein 5.6 g/dL (6.4-8.9)
[2022-05-04] MEDS ORDERED: TACROLIMUS 1MG CAP PO ONE (13:30)
[2022-05-04 15:31] LABS: VBG HCO3 16 mEq/L (21-27); VBG PCO2 43 mmHg (41-51); VBG PH 7.17 pH Units (7.32-7.42); VBG PO2 76 mmHg (25-50)
[2022-05-04 15:32] LABS: Basophils # 0.1 K/mcL (0.0-0.2); Basophils % 0.3 %; Eosinophils # 0.5 K/mcL (0.0-0.6); Eosinophils % 2.9 %; Hematocrit 30.1 % (35.3-44.9); Hemoglobin 9.5 g/dL (11.5-15.4); Immature Granulocytes % 1.1 % (0-4); Lymphocytes % 27.1 %; Mean Corpuscular HGB Conc 31.6 g/dL (31.6-35.5); Mean Corpuscular Hemoglobin 30.9 pg (28.0-33.3); Mean Platelet Volume 10.5 fL (9.4-12.4); Monocytes # 1.5 K/mcL (0.0-1.3); Monocytes % 8.2 %; Neutrophils # 11.1 K/mcL (1.6-8.9); Platelet Count 222 K/mcL (140-400); Red Blood Count 3.07 M/mcL (3.82-4.97); Red Cell Distribution Width 14.3 % (11.5-14.5); Segmented Neutrophils % 60.4 %
[2022-05-04 15:37] LABS: White Blood Count 18.4 K/mcL (4.3-11.1)
[2022-05-04 15:41] LABS: Prothrombin Time 21.8 Seconds (9.4-12.1)
[2022-05-04 15:47] LABS: Albumin 3.3 g/dL (3.5-5.7); Albumin/Globulin Ratio 1.2 (1.1-2.2); Bilirubin,Total 0.3 mg/dL (0.3-1.0); Calcium 7.6 mg/dL (8.6-10.3); Globulin 2.7 g/dL (2.4-3.5); Magnesium 2.8 mg/dL (1.6-2.6); Potassium 4.6 mEq/L (3.5-5.1); Troponin I 0.03 ng/mL (< 0.04)
[2022-05-04] MEDS ORDERED: Naloxone 0.4 MG/ML INJ IVP PRN (17:03)
[2022-05-04] MEDS ORDERED: *HR* Heparin 5,000 UNIT/ML VIAL IVP PRN ×2 (17:33)
[2022-05-04] MEDS ORDERED: *HR* Heparin 5,000 UNIT/ML VIAL IVP ONE (17:33)
[2022-05-04] MEDS: Ringers Solution, Lactated 1,000 ML IVC SCH (20:49)
[2022-05-04] MEDS: Piperacillin/Tazobactam 3.375 GM in 0.9 % Sodium Chloride Mini Bag 100 ML IVPB SCH (20:55)
[2022-05-04 20:57] LABS: Heparin anti-factor XA UFH 0.08 IU/mL (0.30-0.70); INR 2.1; Prothrombin Time 23.3 Seconds (9.4-12.1)
[2022-05-04 20:59] LABS: Activated Partial Thrombo Time 40.9 Seconds (26.0-36.0)
[2022-05-04] MEDS: Heparin 25,000UNIT/250ML 1/2NS 25,000 UNIT/250 ML IV.SOLN IVC SCH (21:52)
[2022-05-04] MEDS: Tacrolimus [Prograf] 1 MG PO SCH (21:53)
[2022-05-04] MEDS: predniSONE 5 MG TABLET PO SCH (22:04)
[2022-05-04] MEDS: Mirtazapine 15 MG TABLET PO SCH (22:04)
[2022-05-04] MEDS: Phenylephrine 20 MG in 0.9 % Sodium Chloride 250 ML IVC SCH (23:48)
[2022-05-05 00:12] LABS: Adenovirus Not Detected (Not Detect); Bordetella Pertussis Not Detected (Not Detect); Chlamydophila pneumoniae Not Detected (Not Detect); Coronavirus 229E Not Detected (Not Detect); Coronavirus HKU1 Not Detected (Not Detect); Coronavirus NL63 Not Detected (Not Detect); Coronavirus OC43 Not Detected (Not Detect); Human Metapneumovirus Not Detected (Not Detect); Human Rhinovirus/Enterovirus Not Detected (Not Detect); Influenza A Subtype 2009 H1 Not Detected (Not Detect); Influenza B Not Detected (Not Detect); Mycoplasma pneumoniae Not Detected (Not Detect); Parainfluenza Virus 1 Not Detected (Not Detect); Parainfluenza Virus 2 Not Detected (Not Detect); Parainfluenza Virus 3 Not Detected (Not Detect); Parainfluenza Virus 4 Not Detected (Not Detect); Respiratory Syncytial Virus Not Detected (Not Detect); SARS-CoV-2 Not Detected (Not Detect)
[2022-05-05] MEDS: Ringers Solution, Lactated 1,000 ML IVC SCH ×3 (03:35→17:14)
[2022-05-05 04:31] LABS: White Blood Count 12.8 K/mcL (4.3-11.1)
[2022-05-05 04:32] LABS: Basophils % 0.3 %; Eosinophils # 0.4 K/mcL (0.0-0.6); Eosinophils % 3.1 %; Hematocrit 26.1 % (35.3-44.9); Immature Granulocytes % 0.7 % (0-4); Lymphocytes # 1.6 K/mcL (0.6-4.6); Lymphocytes % 12.9 %; Mean Corpuscular HGB Conc 30.7 g/dL (31.6-35.5); Mean Corpuscular Hemoglobin 30.8 pg (28.0-33.3); Mean Corpuscular Volume 100.4 fL (83.0-100.0); Mean Platelet Volume 10.6 fL (9.4-12.4); Monocytes # 0.6 K/mcL (0.0-1.3); Monocytes % 4.8 %; Platelet Count 159 K/mcL (140-400); Red Cell Distribution Width 14.4 % (11.5-14.5); Segmented Neutrophils % 78.2 %
[2022-05-05 04:50] LABS: Albumin 2.9 g/dL (3.5-5.7); Albumin/Globulin Ratio 1.3 (1.1-2.2); Bilirubin,Total 0.3 mg/dL (0.3-1.0); Calcium 7.2 mg/dL (8.6-10.3); Globulin 2.2 g/dL (2.4-3.5); Potassium 4.8 mEq/L (3.5-5.1); Total Protein 5.1 g/dL (6.4-8.9)
[2022-05-05] MEDS: Phenylephrine 20 MG in 0.9 % Sodium Chloride 250 ML IVC SCH ×2 (06:01→08:45)
[2022-05-05] MEDS: predniSONE 5 MG TABLET PO SCH (08:00)
[2022-05-05] MEDS: Piperacillin/Tazobactam 3.375 GM in 0.9 % Sodium Chloride Mini Bag 100 ML IVPB SCH ×2 (08:00→20:32)
[2022-05-05] MEDS: Sulfamethoxazole/Trimeth SS 1 TAB PO SCH (08:00)
[2022-05-05] MEDS: Tacrolimus [Prograf] 1 MG PO SCH ×2 (08:01→20:28)
[2022-05-05] MEDS ORDERED: Mirtazapine 15 MG TABLET PO SCH (09:00)
[2022-05-05] MEDS ORDERED: Albuterol 2.5 MG/3 ML NEBULIZER IH PRN (09:13)
[2022-05-05] MEDS: calcitrioL 0.25 MCG CAPSULE PO SCH (09:35)
[2022-05-05] MEDS: Albumin Human 5% 12.5 GM/250 ML IV.SOLN IVC SCH ×2 (09:35→13:32)
[2022-05-05] MEDS: Phenylephrine 100 MG in 0.9 % Sodium Chloride 250 ML IVC SCH ×2 (11:02→22:00)
[2022-05-05] MEDS ORDERED: *HR* Heparin 5,000 UNIT/ML VIAL ONE (13:49)
[2022-05-05] MEDS: rOPINIRole 1 MG TABLET PO SCH ×2 (16:08→20:30)
[2022-05-05] MEDS ORDERED: Perit. Dialysis with Dex 1.5 % 12,000 ML PERITONEAL ONE (19:00)
[2022-05-05] MEDS: Mirtazapine 15 MG TABLET PO SCH (20:29)
[2022-05-06] MEDS ORDERED: *HR* HYDROcodone/Acet 5/325 mg TABLET PO ONE (01:12)
[2022-05-06] MEDS: Heparin 25,000UNIT/250ML 1/2NS 25,000 UNIT/250 ML IV.SOLN IVC SCH ×2 (01:40→10:49)
[2022-05-06] MEDS: Ringers Solution, Lactated 1,000 ML IVC SCH ×5 (01:56→23:45)
[2022-05-06] MEDS: Norepinephrine 4 MG/254 ML IV.SOLN IVC SCH (03:44)
[2022-05-06 05:00] LABS: Basophils % 0.2 %; Eosinophils # 0.4 K/mcL (0.0-0.6); Eosinophils % 3.3 %; Hematocrit 22.2 % (35.3-44.9); Immature Granulocytes % 0.5 % (0-4); Lymphocytes # 1.6 K/mcL (0.6-4.6); Lymphocytes % 11.9 %; Mean Corpuscular HGB Conc 31.5 g/dL (31.6-35.5); Mean Corpuscular Hemoglobin 31.1 pg (28.0-33.3); Mean Corpuscular Volume 98.7 fL (83.0-100.0); Mean Platelet Volume 10.4 fL (9.4-12.4); Monocytes # 0.7 K/mcL (0.0-1.3); Neutrophils # 10.7 K/mcL (1.6-8.9); Platelet Count 127 K/mcL (140-400); Red Blood Count 2.25 M/mcL (3.82-4.97); Red Cell Distribution Width 14.6 % (11.5-14.5); Segmented Neutrophils % 79.1 %; White Blood Count 13.5 K/mcL (4.3-11.1)
[2022-05-06 05:40] LABS: Albumin 3.1 g/dL (3.5-5.7); Albumin/Globulin Ratio 1.6 (1.1-2.2); Bilirubin,Total 0.3 mg/dL (0.3-1.0); Calcium 7.4 mg/dL (8.6-10.3); Globulin 1.9 g/dL (2.4-3.5); Potassium 4.2 mEq/L (3.5-5.1)
[2022-05-06] MEDS: predniSONE 5 MG TABLET PO SCH (07:19)
[2022-05-06] MEDS: Piperacillin/Tazobactam 3.375 GM in 0.9 % Sodium Chloride Mini Bag 100 ML IVPB SCH ×2 (07:20→20:36)
[2022-05-06] MEDS: rOPINIRole 1 MG TABLET PO SCH ×3 (07:20→20:37)
[2022-05-06] MEDS: Tacrolimus [Prograf] 1 MG PO SCH ×2 (07:23→20:38)
[2022-05-06] MEDS ORDERED: 0.9 % Sodium Chloride 500 ML ONE (08:05)
[2022-05-06] MEDS: Renal Vitamin 1 CAP CAPSULE PO SCH (08:07)
[2022-05-06] MEDS: Folic Acid 1 MG TABLET PO SCH (08:07)
[2022-05-06] MEDS: Ondansetron 4 MG/2 ML VIAL IVP PRN ×2 (08:38→21:57)
[2022-05-06 10:26] LABS: Thyroid Stimulating Hormone 3.785 mcIU/mL (0.340-5.600)
[2022-05-06] MEDS: Hydrocortisone Sodium Succ 100 MG/2 ML VIAL IVP SCH ×2 (14:46→23:24)
[2022-05-06 15:45] LABS: Basophils % 0.2 %; Eosinophils # 0.3 K/mcL (0.0-0.6); Eosinophils % 2.2 %; Hematocrit 26.4 % (35.3-44.9); Hemoglobin 8.5 g/dL (11.5-15.4); Immature Granulocytes % 0.7 % (0-4); Lymphocytes # 1.4 K/mcL (0.6-4.6); Lymphocytes % 9.8 %; Mean Corpuscular HGB Conc 32.2 g/dL (31.6-35.5); Mean Corpuscular Hemoglobin 30.5 pg (28.0-33.3); Mean Corpuscular Volume 94.6 fL (83.0-100.0); Mean Platelet Volume 10.6 fL (9.4-12.4); Monocytes # 0.6 K/mcL (0.0-1.3); Neutrophils # 11.6 K/mcL (1.6-8.9); Platelet Count 126 K/mcL (140-400); Red Blood Count 2.79 M/mcL (3.82-4.97); Red Cell Distribution Width 16.5 % (11.5-14.5); Segmented Neutrophils % 83.1 %; White Blood Count 13.9 K/mcL (4.3-11.1)
[2022-05-06] MEDS: Phenylephrine 100 MG in 0.9 % Sodium Chloride 250 ML IVC SCH (18:42)
[2022-05-06] MEDS ORDERED: Perit. Dialysis with Dex 1.5 % 12,000 ML PERITONEAL ONE (19:00)
[2022-05-06] MEDS: *HR* HYDROcodone/Acet 5/325 mg TABLET PO PRN (20:36)
[2022-05-06] MEDS: Mirtazapine 15 MG TABLET PO SCH (21:00)
[2022-05-07] MEDS: Norepinephrine 4 MG/254 ML IV.SOLN IVC SCH (02:45)
[2022-05-07] MEDS: *HR* HYDROcodone/Acet 5/325 mg TABLET PO PRN ×2 (02:58→20:37)
[2022-05-07] MEDS: Ringers Solution, Lactated 1,000 ML IVC SCH (04:52)
[2022-05-07 05:03] LABS: Basophils % 0.2 %; Eosinophils # 0.1 K/mcL (0.0-0.6); Eosinophils % 1.1 %; Hematocrit 26.8 % (35.3-44.9); Hemoglobin 8.4 g/dL (11.5-15.4); Immature Granulocytes % 0.5 % (0-4); Lymphocytes # 0.9 K/mcL (0.6-4.6); Lymphocytes % 8.2 %; Mean Corpuscular HGB Conc 31.3 g/dL (31.6-35.5); Mean Corpuscular Hemoglobin 29.5 pg (28.0-33.3); Mean Platelet Volume 10.8 fL (9.4-12.4); Monocytes # 0.4 K/mcL (0.0-1.3); Monocytes % 3.2 %; Neutrophils # 9.6 K/mcL (1.6-8.9); Platelet Count 121 K/mcL (140-400); Red Blood Count 2.85 M/mcL (3.82-4.97); Red Cell Distribution Width 16.8 % (11.5-14.5); Segmented Neutrophils % 86.8 %; White Blood Count 11.1 K/mcL (4.3-11.1)
[2022-05-07 05:22] LABS: Albumin 3.2 g/dL (3.5-5.7); Albumin/Globulin Ratio 1.5 (1.1-2.2); Bilirubin,Total 0.3 mg/dL (0.3-1.0); Calcium 7.8 mg/dL (8.6-10.3); Globulin 2.2 g/dL (2.4-3.5); Potassium 4.3 mEq/L (3.5-5.1); Total Protein 5.4 g/dL (6.4-8.9)
[2022-05-07] MEDS: predniSONE 5 MG TABLET PO SCH (07:50)
[2022-05-07] MEDS: Renal Vitamin 1 CAP CAPSULE PO SCH (07:51)
[2022-05-07] MEDS: rOPINIRole 1 MG TABLET PO SCH ×3 (07:51→20:36)
[2022-05-07] MEDS: Piperacillin/Tazobactam 3.375 GM in 0.9 % Sodium Chloride Mini Bag 100 ML IVPB SCH ×2 (07:51→20:34)
[2022-05-07] MEDS: Folic Acid 1 MG TABLET PO SCH (07:51)
[2022-05-07] MEDS: Sulfamethoxazole/Trimeth SS 1 TAB PO SCH (07:51)
[2022-05-07] MEDS: Hydrocortisone Sodium Succ 100 MG/2 ML VIAL IVP SCH ×2 (07:53→16:55)
[2022-05-07] MEDS: Tacrolimus [Prograf] 1 MG PO SCH ×2 (07:55→20:35)
[2022-05-07] MEDS: calcitrioL 0.25 MCG CAPSULE PO SCH (07:57)
[2022-05-07 08:46] LABS: VBG HCO3 15 mEq/L (21-27); VBG PCO2 43 mmHg (41-51); VBG PH 7.16 pH Units (7.32-7.42); VBG PO2 100 mmHg (25-50)
[2022-05-07] MEDS ORDERED: *HR* Metoprolol 5 MG/5 ML VIAL IVP ONE (09:32)
[2022-05-07] MEDS: Phenylephrine 100 MG in 0.9 % Sodium Chloride 250 ML IVC SCH (09:34)
[2022-05-07] MEDS: Heparin 25,000UNIT/250ML 1/2NS 25,000 UNIT/250 ML IV.SOLN IVC SCH (10:31)
[2022-05-07] MEDS ORDERED: Calcium Gluconate 1gm/50mL 1 GM/50 ML BAG IVPB PRN (12:29)
[2022-05-07] MEDS ORDERED: Potassium Phosphate 44 MEQ in 0.9 % Sodium Chloride 250 ML IVPB PRN (12:29)
[2022-05-07 13:46] LABS: VBG Ionized Calcium 1.02 mmol/L (1.15-1.35)
[2022-05-07 13:53] LABS: Magnesium 2.3 mg/dL (1.6-2.6); Phosphorous 11.8 mg/dL (2.7-4.5)
[2022-05-07] MEDS: *HR* Digoxin 0.5 MG/2 ML AMPUL IVP SCH ×2 (14:04→16:55)
[2022-05-07] MEDS ORDERED: Perit. Dialysis with Dex 1.5 % 12,000 ML PERITONEAL ONE (19:00)
[2022-05-07] MEDS: Mirtazapine 15 MG TABLET PO SCH (20:36)
[2022-05-07] MEDS: Ondansetron 4 MG/2 ML VIAL IVP PRN (20:38)
[2022-05-08] MEDS: Hydrocortisone Sodium Succ 100 MG/2 ML VIAL IVP SCH ×3 (01:29→16:06)
[2022-05-08] MEDS: Ondansetron 4 MG/2 ML VIAL IVP PRN ×2 (03:39→21:44)
[2022-05-08] MEDS: *HR* HYDROcodone/Acet 5/325 mg TABLET PO PRN ×2 (03:39→22:00)
[2022-05-08 04:25] LABS: Eosinophils % 0.5 %; Hemoglobin 7.1 g/dL (11.5-15.4); Lymphocytes % 6.8 %
[2022-05-08 04:27] LABS: Hematocrit 22.8 % (35.3-44.9); Immature Granulocytes % 0.6 % (0-4); Immature Platelets 4.7 % (1.1-6.1); Lymphocytes # 0.4 K/mcL (0.6-4.6); Mean Corpuscular HGB Conc 31.1 g/dL (31.6-35.5); Mean Corpuscular Hemoglobin 29.8 pg (28.0-33.3); Mean Corpuscular Volume 95.8 fL (83.0-100.0); Mean Platelet Volume 10.6 fL (9.4-12.4); Monocytes # 0.2 K/mcL (0.0-1.3); Monocytes % 3.4 %; Neutrophils # 5.7 K/mcL (1.6-8.9); Red Blood Count 2.38 M/mcL (3.82-4.97); Red Cell Distribution Width 16.7 % (11.5-14.5); Segmented Neutrophils % 88.7 %; White Blood Count 6.4 K/mcL (4.3-11.1)
[2022-05-08 04:35] LABS: Albumin 2.8 g/dL (3.5-5.7); Albumin/Globulin Ratio 1.3 (1.1-2.2); Bilirubin,Total 0.3 mg/dL (0.3-1.0); Calcium 7.4 mg/dL (8.6-10.3); Globulin 2.1 g/dL (2.4-3.5); Magnesium 2.2 mg/dL (1.6-2.6); Potassium 3.9 mEq/L (3.5-5.1); Total Protein 4.9 g/dL (6.4-8.9)
[2022-05-08 05:37] LABS: Platelet Count 97 K/mcL (140-400)
[2022-05-08 05:44] LABS: Platelet Estimate Slight Decrease (Normal)
[2022-05-08 05:45] LABS: Anisocytosis 1+ (Not Present)
[2022-05-08] MEDS: Piperacillin/Tazobactam 3.375 GM in 0.9 % Sodium Chloride Mini Bag 100 ML IVPB SCH ×2 (08:26→21:58)
[2022-05-08] MEDS: rOPINIRole 1 MG TABLET PO SCH ×3 (08:26→21:59)
[2022-05-08] MEDS: Folic Acid 1 MG TABLET PO SCH (08:26)
[2022-05-08] MEDS: Tacrolimus [Prograf] 1 MG PO SCH ×2 (08:27→22:02)
[2022-05-08] MEDS: Renal Vitamin 1 CAP CAPSULE PO SCH (08:28)
[2022-05-08] MEDS ORDERED: Albumin Human 5% 12.5 GM/250 ML IV.SOLN IVC SCH (08:30)
[2022-05-08] MEDS: Heparin 25,000UNIT/250ML 1/2NS 25,000 UNIT/250 ML IV.SOLN IVC SCH ×2 (09:14→15:58)
[2022-05-08] MEDS ORDERED: *HR* Heparin 5,000 UNIT/ML VIAL IVP PRN ×2 (11:03)
[2022-05-08] MEDS ORDERED: Naloxone 0.4 MG/ML INJ IVP PRN (11:03)
[2022-05-08] MEDS ORDERED: Albuterol 2.5 MG/3 ML NEBULIZER IH PRN (11:03)
[2022-05-08] MEDS: Albumin Human 5% 12.5 GM/250 ML IV.SOLN IVC SCH ×2 (11:36→12:26)
[2022-05-08] MEDS ORDERED: Perit. Dialysis with Dex 1.5 % 12,000 ML PERITONEAL ONE (19:00)
[2022-05-08] MEDS: Mirtazapine 15 MG TABLET PO SCH (22:00)
[2022-05-09] MEDS: Hydrocortisone Sodium Succ 100 MG/2 ML VIAL IVP SCH ×4 (00:35→23:57)
[2022-05-09 05:50] LABS: Eosinophils # 0.1 K/mcL (0.0-0.6); Eosinophils % 1.6 %; Hematocrit 21.4 % (35.3-44.9); Hemoglobin 6.8 g/dL (11.5-15.4); Immature Granulocytes % 0.4 % (0-4); Lymphocytes # 0.7 K/mcL (0.6-4.6); Lymphocytes % 16.1 %; Mean Corpuscular HGB Conc 31.8 g/dL (31.6-35.5); Mean Corpuscular Hemoglobin 30.2 pg (28.0-33.3); Mean Corpuscular Volume 95.1 fL (83.0-100.0); Mean Platelet Volume 10.6 fL (9.4-12.4); Monocytes # 0.3 K/mcL (0.0-1.3); Monocytes % 7.4 %; Red Blood Count 2.25 M/mcL (3.82-4.97); Red Cell Distribution Width 16.2 % (11.5-14.5); Segmented Neutrophils % 74.5 %; White Blood Count 4.5 K/mcL (4.3-11.1)
[2022-05-09 05:51] LABS: Neutrophils # 3.4 K/mcL (1.6-8.9); Platelet Count 84 K/mcL (140-400)
[2022-05-09 06:39] LABS: Albumin/Globulin Ratio 1.6 (1.1-2.2); Bilirubin,Total 0.2 mg/dL (0.3-1.0); Calcium 7.2 mg/dL (8.6-10.3); Globulin 1.9 g/dL (2.4-3.5); Magnesium 2.2 mg/dL (1.6-2.6); Potassium 3.3 mEq/L (3.5-5.1); Total Protein 4.9 g/dL (6.4-8.9)
[2022-05-09] MEDS: rOPINIRole 1 MG TABLET PO SCH ×3 (08:34→21:21)
[2022-05-09] MEDS: Renal Vitamin 1 CAP CAPSULE PO SCH (08:34)
[2022-05-09] MEDS: Folic Acid 1 MG TABLET PO SCH (08:35)
[2022-05-09] MEDS: Piperacillin/Tazobactam 3.375 GM in 0.9 % Sodium Chloride Mini Bag 100 ML IVPB SCH ×2 (08:35→21:05)
[2022-05-09] MEDS: Tacrolimus [Prograf] 1 MG PO SCH ×3 (08:36→22:02)
[2022-05-09] MEDS: Benzonatate 100 MG CAPSULE PO PRN ×2 (08:53→17:45)
[2022-05-09] MEDS ORDERED: 0.9 % Sodium Chloride 250 ML IVC SCH (11:00)
[2022-05-09 12:42] LABS: Hepatitis B Surface Antibody < 3.10 mIU/mL
[2022-05-09 12:57] LABS: Hepatitis B Surface Antigen Nonreactive (Nonreactive)
[2022-05-09 13:08] LABS: Hepatitis B Surface Antibody < 3.10 mIU/mL
[2022-05-09 13:18] LABS: Hepatitis B Surface Antigen Nonreactive (Nonreactive)
[2022-05-09] MEDS ORDERED: 0.9 % Sodium Chloride 250 ML ONE (13:20)
[2022-05-09] MEDS ORDERED: Darbepoetin 25 MCG/0.42 ML SYRINGE SQ SCH (15:00)
[2022-05-09] MEDS: Heparin 25,000UNIT/250ML 1/2NS 25,000 UNIT/250 ML IV.SOLN IVC SCH (15:56)
[2022-05-09 18:11] LABS: Hemoglobin 8.6 g/dL (11.5-15.4)
[2022-05-09] MEDS ORDERED: Perit. Dialysis with Dex 1.5 % 12,000 ML PERITONEAL ONE (20:21)
[2022-05-09] MEDS: Mirtazapine 15 MG TABLET PO SCH (21:22)
[2022-05-09] MEDS: *HR* HYDROcodone/Acet 5/325 mg TABLET PO PRN (21:55)
[2022-05-10] MEDS: Benzonatate 100 MG CAPSULE PO PRN (04:56)
[2022-05-10 06:37] LABS: Mean Corpuscular Hemoglobin 29.4 pg (28.0-33.3); Red Blood Count 2.72 M/mcL (3.82-4.97); Red Cell Distribution Width 17.5 % (11.5-14.5)
[2022-05-10] MEDS ORDERED: Regadenoson 0.4 MG/5 ML SYRINGE IVP ONE (06:38)
[2022-05-10 06:39] LABS: Immature Platelets 3.4 % (1.1-6.1); Mean Corpuscular Volume 91.9 fL (83.0-100.0); Mean Platelet Volume 10.1 fL (9.4-12.4); White Blood Count 5.5 K/mcL (4.3-11.1)
[2022-05-10] MEDS: Renal Vitamin 1 CAP CAPSULE PO SCH (09:57)
[2022-05-10] MEDS: rOPINIRole 1 MG TABLET PO SCH ×3 (09:58→21:45)
[2022-05-10] MEDS: Folic Acid 1 MG TABLET PO SCH (09:58)
[2022-05-10 10:04] LABS: Calcium 6.9 mg/dL (8.6-10.3); Potassium 3.3 mEq/L (3.5-5.1)
[2022-05-10] MEDS: Piperacillin/Tazobactam 3.375 GM in 0.9 % Sodium Chloride Mini Bag 100 ML IVPB SCH (10:04)
[2022-05-10] MEDS: calcitrioL 0.25 MCG CAPSULE PO SCH (10:05)
[2022-05-10] MEDS: Tacrolimus [Prograf] 1 MG PO SCH ×2 (10:08→21:51)
[2022-05-10] MEDS: Sulfamethoxazole/Trimeth SS 1 TAB PO SCH (11:21)
[2022-05-10] MEDS: Hydrocortisone Sodium Succ 100 MG/2 ML VIAL IVP SCH ×3 (11:22→19:37)
[2022-05-10] MEDS: Ondansetron 4 MG/2 ML VIAL IVP PRN (11:22)
[2022-05-10 13:12] LABS: Hemoglobin 8.1 g/dL (11.5-15.4)
[2022-05-10 13:23] LABS: Heparin anti-factor XA UFH 0.68 IU/mL (0.30-0.70)
[2022-05-10] MEDS ORDERED: Acetaminophen 325 MG TABLET PO PRN (13:24)
[2022-05-10 13:32] LABS: Prothrombin Time 11.4 Seconds (9.4-12.1)
[2022-05-10] MEDS: Heparin 25,000UNIT/250ML 1/2NS 25,000 UNIT/250 ML IV.SOLN IVC SCH (14:52)
[2022-05-10] MEDS ORDERED: Warfarin perPT PO PRN (18:00)
[2022-05-10] MEDS ORDERED: *HR* Warfarin 2.5 MG TABLET PO ONE (18:00)
[2022-05-10] MEDS ORDERED: Perit. Dialysis with Dex 1.5 % 12,000 ML PERITONEAL ONE (19:00)
[2022-05-10] MEDS ORDERED: *HR* HYDROcodone/Acet 5/325 mg TABLET PO ONE (21:06)
[2022-05-10] MEDS: Mirtazapine 15 MG TABLET PO SCH (21:45)
[2022-05-11] MEDS: Ondansetron 4 MG/2 ML VIAL IVP PRN (02:36)
[2022-05-11 05:21] LABS: Basophils % 0.1 %; Eosinophils # 0.1 K/mcL (0.0-0.6); Eosinophils % 1.4 %; Hematocrit 20.2 % (35.3-44.9); Hemoglobin 6.4 g/dL (11.5-15.4); Immature Granulocytes % 1.2 % (0-4); Lymphocytes # 1.6 K/mcL (0.6-4.6); Lymphocytes % 16.1 %; Mean Corpuscular HGB Conc 31.7 g/dL (31.6-35.5); Mean Corpuscular Hemoglobin 29.2 pg (28.0-33.3); Mean Corpuscular Volume 92.2 fL (83.0-100.0); Monocytes # 0.8 K/mcL (0.0-1.3); Monocytes % 8.2 %; Neutrophils # 7.2 K/mcL (1.6-8.9); Platelet Count 112 K/mcL (140-400); Red Blood Count 2.19 M/mcL (3.82-4.97); Red Cell Distribution Width 17.4 % (11.5-14.5); White Blood Count 9.9 K/mcL (4.3-11.1)
[2022-05-11 05:29] LABS: INR 1.1; Prothrombin Time 11.7 Seconds (9.4-12.1)
[2022-05-11] MEDS ORDERED: *HR* HYDROcodone/Acet 5/325 mg TABLET PO ONE (05:36)
[2022-05-11 05:41] LABS: Calcium 7.2 mg/dL (8.6-10.3); Potassium 3.1 mEq/L (3.5-5.1)
[2022-05-11] MEDS: Prochlorperazine 10 MG/2 ML VIAL IVP PRN (09:55)
[2022-05-11] MEDS: predniSONE 20 MG TABLET PO SCH (09:55)
[2022-05-11] MEDS: Folic Acid 1 MG TABLET PO SCH (09:56)
[2022-05-11] MEDS: Tacrolimus [Prograf] 1 MG PO SCH ×2 (09:57→20:57)
[2022-05-11] MEDS: Renal Vitamin 1 CAP CAPSULE PO SCH (09:57)
[2022-05-11] MEDS: rOPINIRole 1 MG TABLET PO SCH ×3 (10:04→20:56)
[2022-05-11] MEDS ORDERED: *HR* FentaNYL (PF) 100 MCG/2 ML VIAL IVP ONE (15:12)
[2022-05-11] MEDS ORDERED: *HR* Warfarin 2.5 MG TABLET PO ONE (18:00)
[2022-05-11] MEDS ORDERED: Perit. Dialysis with Dex 1.5 % 12,000 ML PERITONEAL ONE (19:00)
[2022-05-11] MEDS: Mirtazapine 15 MG TABLET PO SCH (20:56)
[2022-05-12] MEDS ORDERED: Prochlorperazine 10 MG/2 ML VIAL IVP PRN (00:34)
[2022-05-12] MEDS: Prochlorperazine 10 MG/2 ML VIAL IVP PRN ×3 (00:50→21:18)
[2022-05-12 01:13] LABS: Hematocrit 19.9 % (35.3-44.9); Hemoglobin 6.4 g/dL (11.5-15.4)
[2022-05-12 03:58] LABS: Basophils % 0.1 %; Eosinophils % 0.4 %; Hematocrit 19.8 % (35.3-44.9); Hemoglobin 6.3 g/dL (11.5-15.4); Immature Granulocytes % 1.6 % (0-4); Lymphocytes # 1.1 K/mcL (0.6-4.6); Lymphocytes % 10.6 %; Mean Corpuscular HGB Conc 31.8 g/dL (31.6-35.5); Mean Corpuscular Hemoglobin 28.6 pg (28.0-33.3); Monocytes # 0.8 K/mcL (0.0-1.3); Monocytes % 8.2 %; Neutrophils # 7.9 K/mcL (1.6-8.9); Platelet Count 106 K/mcL (140-400); Red Cell Distribution Width 17.9 % (11.5-14.5); Segmented Neutrophils % 79.1 %
[2022-05-12 04:02] LABS: Prothrombin Time 11.5 Seconds (9.4-12.1)
[2022-05-12 04:17] LABS: Calcium 7.2 mg/dL (8.6-10.3)
[2022-05-12 07:06] LABS: Hematocrit 23.5 % (35.3-44.9); Hemoglobin 7.7 g/dL (11.5-15.4)
[2022-05-12] MEDS: Folic Acid 1 MG TABLET PO SCH (08:14)
[2022-05-12] MEDS: Sulfamethoxazole/Trimeth SS 1 TAB PO SCH (08:15)
[2022-05-12] MEDS: rOPINIRole 1 MG TABLET PO SCH ×3 (08:15→21:30)
[2022-05-12] MEDS: Renal Vitamin 1 CAP CAPSULE PO SCH (08:15)
[2022-05-12] MEDS: predniSONE 20 MG TABLET PO SCH (08:15)
[2022-05-12] MEDS: Tacrolimus [Prograf] 1 MG PO SCH ×2 (08:17→21:19)
[2022-05-12] MEDS: calcitrioL 0.25 MCG CAPSULE PO SCH (08:17)
[2022-05-12] MEDS: Ondansetron 4 MG/2 ML VIAL IVP PRN (12:15)
[2022-05-12 12:17] LABS: Hematocrit 23.4 % (35.3-44.9); Hemoglobin 7.6 g/dL (11.5-15.4)
[2022-05-12] MEDS ORDERED: *HR* Warfarin 5 MG TABLET PO ONE (18:00)
[2022-05-12] MEDS ORDERED: Perit. Dialysis with Dex 1.5 % 12,000 ML PERITONEAL ONE (19:00)
[2022-05-12] MEDS: Mirtazapine 15 MG TABLET PO SCH (21:18)
[2022-05-13 03:16] LABS: Basophils % 0.1 %; Eosinophils % 0.3 %; Hematocrit 22.1 % (35.3-44.9); Hemoglobin 7.2 g/dL (11.5-15.4); Immature Granulocytes % 1.5 % (0-4); Lymphocytes % 10.7 %; Mean Corpuscular HGB Conc 32.6 g/dL (31.6-35.5); Mean Corpuscular Hemoglobin 29.5 pg (28.0-33.3); Mean Corpuscular Volume 90.6 fL (83.0-100.0); Mean Platelet Volume 11.3 fL (9.4-12.4); Monocytes # 0.6 K/mcL (0.0-1.3); Neutrophils # 7.1 K/mcL (1.6-8.9); Nucleated Red Blood Cells 0.3 /100 WBC (0); Platelet Count 103 K/mcL (140-400); Red Blood Count 2.44 M/mcL (3.82-4.97); Red Cell Distribution Width 17.4 % (11.5-14.5); Segmented Neutrophils % 80.4 %; White Blood Count 8.9 K/mcL (4.3-11.1)
[2022-05-13 03:22] LABS: INR 1.1; Prothrombin Time 12.5 Seconds (9.4-12.1)
[2022-05-13 03:32] LABS: Calcium 7.2 mg/dL (8.6-10.3); Potassium 4.3 mEq/L (3.5-5.1)
[2022-05-13] MEDS: predniSONE 20 MG TABLET PO SCH (09:33)
[2022-05-13] MEDS: Renal Vitamin 1 CAP CAPSULE PO SCH (09:33)
[2022-05-13] MEDS: Folic Acid 1 MG TABLET PO SCH (09:33)
[2022-05-13] MEDS: Tacrolimus [Prograf] 1 MG PO SCH ×2 (09:34→20:29)
[2022-05-13] MEDS: rOPINIRole 1 MG TABLET PO SCH ×3 (09:34→20:28)
[2022-05-13] MEDS: Prochlorperazine 10 MG/2 ML VIAL IVP PRN ×3 (10:00→23:43)
[2022-05-13 17:08] LABS: Hematocrit 25.1 % (35.3-44.9); Hemoglobin 8.1 g/dL (11.5-15.4)
[2022-05-13] MEDS ORDERED: Perit. Dialysis with Dex 1.5 % 12,000 ML PERITONEAL ONE (18:00)
[2022-05-13] MEDS: Mirtazapine 15 MG TABLET PO SCH (20:27)
[2022-05-13 23:42] VITALS: O2SAT 100
[2022-05-14 05:15] LABS: INR 1.1; Prothrombin Time 12.6 Seconds (9.4-12.1)
[2022-05-14 05:18] LABS: Eosinophils % 0.1 %; Hematocrit 25.2 % (35.3-44.9); Immature Granulocytes % 2.1 % (0-4); Lymphocytes # 0.5 K/mcL (0.6-4.6); Lymphocytes % 7.8 %; Mean Corpuscular HGB Conc 31.7 g/dL (31.6-35.5); Mean Corpuscular Hemoglobin 28.7 pg (28.0-33.3); Mean Corpuscular Volume 90.3 fL (83.0-100.0); Mean Platelet Volume 10.7 fL (9.4-12.4); Monocytes # 0.4 K/mcL (0.0-1.3); Neutrophils # 5.7 K/mcL (1.6-8.9); Nucleated Red Blood Cells 0.3 /100 WBC (0); Platelet Count 113 K/mcL (140-400); Red Blood Count 2.79 M/mcL (3.82-4.97); Red Cell Distribution Width 17.6 % (11.5-14.5); White Blood Count 6.8 K/mcL (4.3-11.1)
[2022-05-14] MEDS: Prochlorperazine 10 MG/2 ML VIAL IVP PRN (05:55)
[2022-05-14 06:47] VITALS: TEMP 98.9
[2022-05-14] MEDS ORDERED: predniSONE 20 MG TABLET PO SCH (09:00)
[2022-05-14] MEDS: Tacrolimus [Prograf] 1 MG PO SCH (09:44)
[2022-05-14] MEDS: Sulfamethoxazole/Trimeth SS 1 TAB PO SCH (09:46)
[2022-05-14] MEDS: rOPINIRole 1 MG TABLET PO SCH (09:46)
[2022-05-14] MEDS: Renal Vitamin 1 CAP CAPSULE PO SCH (09:46)
[2022-05-14] MEDS: Folic Acid 1 MG TABLET PO SCH (09:46)
[2022-05-14] MEDS: calcitrioL 0.25 MCG CAPSULE PO SCH (09:49)
[2022-05-14 11:39] VITALS: BP 139/89
[2022-05-14 12:03] VITALS: PULSE 97
[2022-05-14] MEDS ORDERED: *HR* Warfarin 5 MG TABLET PO ONE (18:00)
== END 2022-05-14 11:30 | disposition home health service (06) | DRG 871 ==
LOC: EMEROOARM 05:04 → ICNU 18:20 → SUATTDRO 18:20 → ICNU 20:05 → 2NNU 05-09 20:42
PROVIDERS: ADMIT Family Medicine; ATTEND Internal Medicine

== ENCOUNTER 2022-06-11 13:18 | Inpatient (IN) ==
[2022-06-11] MEDS ORDERED: Albuterol 2.5 MG/3 ML NEBULIZER IH PRN (18:20)
[2022-06-11] MEDS ORDERED: Naloxone 0.4 MG/ML INJ IVP PRN (18:24)
[2022-06-11] MEDS ORDERED: calcitrioL 0.25 MCG CAPSULE PO SCH (18:30)
[2022-06-11 19:00] LABS: Basophils % 0.4 %; Eosinophils # 0.1 K/mcL (0.0-0.6); Eosinophils % 1.6 %; Hematocrit 24.9 % (35.3-44.9); Hemoglobin 7.7 g/dL (11.5-15.4); Immature Granulocytes % 0.9 % (0-4); Lymphocytes # 1.5 K/mcL (0.6-4.6); Lymphocytes % 34.3 %; Mean Corpuscular HGB Conc 30.9 g/dL (31.6-35.5); Mean Corpuscular Hemoglobin 30.1 pg (28.0-33.3); Mean Corpuscular Volume 97.3 fL (83.0-100.0); Mean Platelet Volume 10.4 fL (9.4-12.4); Monocytes # 0.3 K/mcL (0.0-1.3); Monocytes % 7.4 %; Neutrophils # 2.5 K/mcL (1.6-8.9); Platelet Count 168 K/mcL (140-400); Red Blood Count 2.56 M/mcL (3.82-4.97); Red Cell Distribution Width 15.9 % (11.5-14.5); Segmented Neutrophils % 55.4 %; White Blood Count 4.5 K/mcL (4.3-11.1)
[2022-06-11 19:07] LABS: INR 1.3
[2022-06-11 19:22] LABS: Albumin 2.6 g/dL (3.5-5.7); Albumin/Globulin Ratio 1.1 (1.1-2.2); Bilirubin,Total 0.3 mg/dL (0.3-1.0); Calcium 5.3 mg/dL (8.6-10.3); Globulin 2.4 g/dL (2.4-3.5); Potassium 5.3 mEq/L (3.5-5.1)
[2022-06-11] MEDS ORDERED: Calcium Gluconate 1gm/50mL 1 GM/50 ML BAG IVPB ONE (20:26)
[2022-06-11] MEDS: Mirtazapine 15 MG TABLET PO SCH (20:48)
[2022-06-11] MEDS: ROPINIROLE HCL 6 MG PO SCH (20:49)
[2022-06-11] MEDS: Tacrolimus [Prograf] 1 MG Capsule PO SCH (20:49)
[2022-06-11] MEDS ORDERED: Tacrolimus [Prograf] 0.5 MG Capsule PO SCH (21:00)
[2022-06-11] MEDS ORDERED: Sulfamethoxazole/Trimeth DS 1 EACH TABLET PO SCH (21:00)
[2022-06-12] MEDS ORDERED: Prochlorperazine 10 MG/2 ML VIAL IVP ONE (05:26)
[2022-06-12 05:55] LABS: Basophils % 0.4 %; Eosinophils # 0.1 K/mcL (0.0-0.6); Eosinophils % 1.8 %; Hematocrit 25.8 % (35.3-44.9); Hemoglobin 7.8 g/dL (11.5-15.4); Immature Granulocytes % 1.1 % (0-4); Lymphocytes # 2.2 K/mcL (0.6-4.6); Lymphocytes % 40.2 %; Mean Corpuscular HGB Conc 30.2 g/dL (31.6-35.5); Mean Corpuscular Hemoglobin 29.1 pg (28.0-33.3); Mean Corpuscular Volume 96.3 fL (83.0-100.0); Mean Platelet Volume 10.2 fL (9.4-12.4); Monocytes # 0.4 K/mcL (0.0-1.3); Monocytes % 7.7 %; Neutrophils # 2.7 K/mcL (1.6-8.9); Platelet Count 153 K/mcL (140-400); Red Blood Count 2.68 M/mcL (3.82-4.97); Red Cell Distribution Width 16.6 % (11.5-14.5); Segmented Neutrophils % 48.8 %; White Blood Count 5.6 K/mcL (4.3-11.1)
[2022-06-12 06:23] LABS: Calcium 5.4 mg/dL (8.6-10.3); Potassium 5.1 mEq/L (3.5-5.1)
[2022-06-12] MEDS ORDERED: Calcium Gluconate 1gm/50mL 1 GM/50 ML BAG IVPB ONE (06:46)
[2022-06-12] MEDS: Tacrolimus [Prograf] 1 MG Capsule PO SCH ×2 (07:55→20:33)
[2022-06-12] MEDS ORDERED: Renal Vitamin 1 CAP CAPSULE PO SCH (09:00)
[2022-06-12] MEDS ORDERED: Folic Acid 1 MG TABLET PO SCH (09:00)
[2022-06-12] MEDS ORDERED: predniSONE 5 MG TABLET PO SCH (09:00)
[2022-06-12] MEDS ORDERED: Calcium Gluconate 1gm/50mL 1 GM/50 ML BAG IVPB PRN (12:16)
[2022-06-12] MEDS ORDERED: Perit. Dialysis with Dex 1.5 % 12,000 ML PERITONEAL ONE (14:00)
[2022-06-12 14:53] LABS: Hepatitis B Surface Antibody < 3.10 mIU/mL
[2022-06-12 15:05] LABS: Hepatitis B Surface Antigen Nonreactive (Nonreactive)
[2022-06-12] MEDS ORDERED: *HR* Warfarin 2.5 MG TABLET PO SCH (18:00)
[2022-06-12] MEDS: ROPINIROLE HCL 6 MG PO SCH (20:32)
[2022-06-12] MEDS: Mirtazapine 15 MG TABLET PO SCH (20:33)
[2022-06-12] MEDS ORDERED: Prochlorperazine 10 MG/2 ML VIAL IVP PRN (20:38)
[2022-06-13 03:21] LABS: VBG Ionized Calcium 0.71 mmol/L (1.15-1.35)
[2022-06-13 03:22] LABS: INR 1.3; Prothrombin Time 14.4 Seconds (9.4-12.1)
[2022-06-13 04:00] LABS: Albumin 2.6 g/dL (3.5-5.7); Calcium 5.3 mg/dL (8.6-10.3); Phosphorous 7.3 mg/dL (2.7-4.5); Potassium 4.6 mEq/L (3.5-5.1)
[2022-06-13] MEDS: Calcium Gluconate 1gm/50mL 1 GM/50 ML BAG IVPB SCH ×2 (04:30→04:53)
[2022-06-13] MEDS ORDERED: Naloxone 0.4 MG/ML INJ IVP PRN (07:20)
[2022-06-13] MEDS ORDERED: Albuterol 2.5 MG/3 ML NEBULIZER IH PRN (07:20)
[2022-06-13] MEDS ORDERED: Calcium Gluconate 1gm/50mL 1 GM/50 ML BAG IVPB PRN (07:20)
[2022-06-13] MEDS: Renal Vitamin 1 CAP CAPSULE PO SCH (08:07)
[2022-06-13] MEDS: Folic Acid 1 MG TABLET PO SCH (08:07)
[2022-06-13] MEDS: predniSONE 5 MG TABLET PO SCH (08:07)
[2022-06-13] MEDS: Tacrolimus [Prograf] 1 MG Capsule PO SCH ×3 (08:09→19:49)
[2022-06-13] MEDS: calcitrioL 0.25 MCG CAPSULE PO SCH (11:36)
[2022-06-13] MEDS: *HR* Warfarin 2.5 MG TABLET PO SCH (18:07)
[2022-06-13] MEDS ORDERED: Prochlorperazine 10 MG/2 ML VIAL IVP ONE (18:36)
[2022-06-13] MEDS: REQUIP 6 MG PO SCH (19:49)
[2022-06-13] MEDS: Mirtazapine 15 MG TABLET PO SCH (19:50)
[2022-06-13] MEDS ORDERED: Perit. Dialysis with Dex 1.5 % 12,000 ML PERITONEAL ONE (21:00)
[2022-06-14 01:49] LABS: Basophils % 0.5 %; Eosinophils # 0.1 K/mcL (0.0-0.6); Eosinophils % 1.8 %; Hematocrit 23.9 % (35.3-44.9); Hemoglobin 7.3 g/dL (11.5-15.4); Immature Granulocytes % 0.9 % (0-4); Lymphocytes # 2.1 K/mcL (0.6-4.6); Lymphocytes % 36.7 %; Mean Corpuscular HGB Conc 30.5 g/dL (31.6-35.5); Mean Corpuscular Hemoglobin 29.4 pg (28.0-33.3); Mean Corpuscular Volume 96.4 fL (83.0-100.0); Mean Platelet Volume 9.9 fL (9.4-12.4); Monocytes # 0.4 K/mcL (0.0-1.3); Monocytes % 7.3 %; Platelet Count 148 K/mcL (140-400); Red Blood Count 2.48 M/mcL (3.82-4.97); Red Cell Distribution Width 16.2 % (11.5-14.5); Segmented Neutrophils % 52.8 %; White Blood Count 5.6 K/mcL (4.3-11.1)
[2022-06-14 01:58] LABS: INR 1.1; Prothrombin Time 12.8 Seconds (9.4-12.1)
[2022-06-14 02:01] LABS: VBG Ionized Calcium 0.69 mmol/L (1.15-1.35)
[2022-06-14] MEDS ORDERED: Calcium Gluconate 1gm/50mL 1 GM/50 ML BAG IVPB SCH (07:30)
[2022-06-14] MEDS: calcitrioL 0.25 MCG CAPSULE PO SCH (08:09)
[2022-06-14] MEDS: predniSONE 5 MG TABLET PO SCH (08:10)
[2022-06-14] MEDS: Renal Vitamin 1 CAP CAPSULE PO SCH (08:10)
[2022-06-14] MEDS: Folic Acid 1 MG TABLET PO SCH (08:10)
[2022-06-14] MEDS: Tacrolimus [Prograf] 1 MG Capsule PO SCH ×2 (08:12→19:42)
[2022-06-14] MEDS ORDERED: calcitrioL 0.25 MCG CAPSULE PO SCH (09:00)
[2022-06-14] MEDS ORDERED: Sulfamethoxazole/Trimeth SS 1 TAB PO SCH (09:00)
[2022-06-14 11:18] LABS: Calcium 5.8 mg/dL (8.6-10.3); Potassium 4.5 mEq/L (3.5-5.1)
[2022-06-14 13:12] LABS: VBG Ionized Calcium 0.77 mmol/L (1.15-1.35)
[2022-06-14] MEDS ORDERED: Perit. Dialysis with Dex 1.5 % 12,000 ML PERITONEAL ONE (19:00)
[2022-06-14] MEDS ORDERED: Perit. Dialysis with Dex 1.5 % 12,000 ML ONE (19:17)
[2022-06-14] MEDS: *HR* Warfarin 2.5 MG TABLET PO SCH (19:42)
[2022-06-14] MEDS: Mirtazapine 15 MG TABLET PO SCH (19:42)
[2022-06-14] MEDS: REQUIP 6 MG PO SCH (19:43)
[2022-06-14] MEDS ORDERED: Prochlorperazine 10 MG/2 ML VIAL IVP ONE (19:50)
[2022-06-15 01:50] LABS: VBG Ionized Calcium 0.76 mmol/L (1.15-1.35)
[2022-06-15 01:52] LABS: Basophils % 0.4 %; Eosinophils # 0.1 K/mcL (0.0-0.6); Eosinophils % 2.6 %; Hematocrit 23.3 % (35.3-44.9); Hemoglobin 7.2 g/dL (11.5-15.4); Immature Granulocytes % 0.8 % (0-4); Lymphocytes # 1.8 K/mcL (0.6-4.6); Lymphocytes % 35.3 %; Mean Corpuscular HGB Conc 30.9 g/dL (31.6-35.5); Mean Corpuscular Hemoglobin 29.8 pg (28.0-33.3); Mean Corpuscular Volume 96.3 fL (83.0-100.0); Mean Platelet Volume 10.2 fL (9.4-12.4); Monocytes # 0.4 K/mcL (0.0-1.3); Monocytes % 7.7 %; Neutrophils # 2.6 K/mcL (1.6-8.9); Platelet Count 134 K/mcL (140-400); Red Blood Count 2.42 M/mcL (3.82-4.97); Red Cell Distribution Width 15.9 % (11.5-14.5); Segmented Neutrophils % 53.2 %
[2022-06-15 02:00] LABS: INR 1.1; Prothrombin Time 12.3 Seconds (9.4-12.1)
[2022-06-15 02:08] LABS: Potassium 4.2 mEq/L (3.5-5.1)
[2022-06-15] MEDS: Calcium Gluconate 1gm/50mL 1 GM/50 ML BAG IVPB SCH ×2 (02:57→03:35)
[2022-06-15] MEDS: predniSONE 5 MG TABLET PO SCH (10:26)
[2022-06-15] MEDS: Renal Vitamin 1 CAP CAPSULE PO SCH (10:26)
[2022-06-15] MEDS: Folic Acid 1 MG TABLET PO SCH (10:26)
[2022-06-15] MEDS: Tacrolimus [Prograf] 1 MG Capsule PO SCH (10:35)
[2022-06-15 10:57] VITALS: BP 94/57; PULSE 64; TEMP 97.9; O2SAT 97
== END 2022-06-15 13:33 | disposition home health service (06) | DRG 314 ==
LOC: ICNU → 2ANU 06-13 13:48
PROVIDERS: ADMIT Family Medicine; ATTEND Family Medicine